=== PATIENT | male | born 1960 | race African-American/Black ===

== ENCOUNTER → 2022-01-02 09:23 | Outpatient (REF) | payer OTHER, SELFPAY ==
--- NOTE | 2022-01-02 09:27 | CA_ITS ---
Transthoracic Echocardiogram Patient (Last, First, Middle): Rai Chilel, Gender: Male Date of : 1960 Age: 61 Procedure Date: 01/02/2022 Procedure Type: Transthoracic Echocardiogram Location: OP Height: 182.88 cm Weight: 104.33 kg BSA: 2.26 m2 Heart Rate: bpm BP: 132 / 70 mmHg Western [employer] Hat Blocker: PUNEET Referring MD: Angelita [facility] Symptoms: I51.7 CARDIOMEGALY Study Quality: Good ECG Rhythm: Sinus Conclusions: - The left ventricular systolic function is normal. The visually estimated ejection fraction is between 60-65%. - LV peak global longitudinal strain -9.7% (reduced). - There is severely increased left ventricular wall thickness. - There is mild calcification of the aortic valve. Findings Left Ventricle Normal left ventricular cavity size. There is severely increased left ventricular wall thickness. The left ventricular systolic function is normal. The visually estimated ejection fraction is between 60-65%. There is no evidence of regional wall motion abnormalities. E/E prime ratio is between 8 and 15 consistent with indeterminate filling pressures. Evidence suggests grade I (mild) diastolic dysfunction. LV peak global longitudinal strain -9.7% (reduced). Right Ventricle Mildly increased right ventricular cavity size. There is normal right ventricular systolic function. Atria Both atria are normal in size. Aortic Valve There is a normal trileaflet aortic valve. There is mild calcification of the aortic valve. There is no aortic valve stenosis. There is no aortic valve regurgitation. Mitral Valve The mitral valve appears normal. There is trace mitral valve regurgitation. There is no mitral valve stenosis. Pulmonic Valve The pulmonic valve is likely normal. Tricuspid Valve Normal tricuspid valve structure. There is trace tricuspid valve regurgitation. Tricuspid regurgitation envelope is inadequate for calculation of right ventricular systolic pressure. Great Vessels The asc aorta is normal in size. Venous The inferior vena cava is normal in size and collapses greater than 50% with inspiration. Pericardium/Pleural There is no evidence of pericardial effusion. Prior Study Comparison No significant change compared to prior study dated: 04/13/2020. (GLS not previously performed). Measurements 2D Linear Measurements IVSd: 1.61 0.6-0.9/0.6-1.0 cm LVIDd: 4.40 3.9-5.3/4.2-5.9 cm LVIDd Index: 1.95 2.4-3.2/2.2-3.1 cm/m2 LVIDs: 2.39 2.0-3.6 cm LVPWd: 1.86 0.7-1.1 cm LA Diam: 4.10 2.7-3.8/3.0-4.0 cm LAIDs Index: 1.81 1.5-2.3 cm/m2 LV Mass: 418.35 67-162/88-224 g LV Mass Index: 185.11 43-95/49-115 g/m2 LVOT Diam: 2.10 3.0+(-)1.3 cm 2D Systolic Function EF 4C: 59.70 >55% Mitral Valve MV Pk E: 0.69 MV PK A: 0.47 MV Decel Time: 187.00 E/A: 1.50 E'Lateral: 5.11 E'Medial: 4.68 E/E' Med: 14.70 E/E' Lat: 13.40 PHT: 55.00 MVA PHT: 4.00 Decel Talbot: 3.67 Aortic Valve AoV Pk Silviano: 1.97 AoV Mn Silviano: 1.36 AoV VTI: 0.37 AoV Pk Grad: 16.00 Aov Mn Grad: 8.00 IRMA Cont.VTI: 2.35 LVOT LVOT Pk Silviano: 1.34 LVOT Mn Silviano: 0.91 LVOT VTI: 0.25 LVOT Pk Grad: 7.00 LVOT Mn Grad: 4.00 LVOT Diam: 2.10 LVOT Area: 3.46 Diastolic Function MV Pk E: 0.69 MV Pk A: 0.47 E/A: 1.50 E'Medial: 4.68 E/E' Med: 14.70 E' Laterial: 5.11 E/E' Lat: 13.40 Right Ventricle TAPSE (mm): 20.90 TVS' Silviano: 15.80 Tricuspid Valve RA Press: 3.00 Great Vessels Aorta Sinus of Valsalva: 3.16 2.0-3.[address] Ridge: 3.13 1.7-3.4 cm Ao Asc: 3.70 2.1-3.4 cm Pulmonary Veins Pulm Vein S/D 0.90 Pulmonary Valve PV Pk Silviano: 1.00 Peak PV Grad: 4.00 Updated in Other Vendor System with Status of Final Miguelito Barnhart MD electronically signed on 01/02/2022 5:10:19 PM with status of Final
== END ==
LOC: HO.CARD 09:23
PROVIDERS: PCP Registered Nurse; Visit Provider Registered Nurse
DX: I51.7 Cardiomegaly (principal)
CPT/HCPCS: 93306; 93356

== ENCOUNTER → 2022-01-31 10:07 | Outpatient (BNVA) | payer OTHER, SELFPAY | PROVIDERS: PCP Registered Nurse; Referring Provider Registered Nurse; Visit Provider Internal Medicine | DX: I51.7 Cardiomegaly (principal); I12.9 Hypertensive chronic kidney disease with stage 1 through stage 4 chronic kidney disease, or unspecified chronic kidney disease; N18.9 Chronic kidney disease, unspecified; R06.02 Shortness of breath; F17.210 Nicotine dependence, cigarettes, uncomplicated | CPT/HCPCS: 93005 ==

== ENCOUNTER → 2022-03-02 15:58 | Outpatient (BNVA) | payer OTHER, SELFPAY | PROVIDERS: PCP Registered Nurse; Visit Provider Urology | DX: N40.1 Benign prostatic hyperplasia with lower urinary tract symptoms (principal); N13.8 Other obstructive and reflux uropathy; R39.11 Hesitancy of micturition; R39.12 Poor urinary stream | CPT/HCPCS: 51798 ==

== ENCOUNTER 2022-04-26 11:32 | Outpatient (REF) | payer OTHER, SELFPAY | END 2022-04-26 11:33 | disposition home or self-care (01) | LOC: HO.US 11:32 | PROVIDERS: Visit Provider Urology | DX: Z13.89 Encounter for screening for other disorder (principal) ==

== ENCOUNTER 2022-05-10 15:27 | Outpatient (REF) | payer OTHER, SELFPAY ==
--- NOTE | ~2022-05-10 | US_ITS ---
EXAMINATION: US PELVIS LIMITED (BLADDER) CLINICAL INFORMATION: Poor urinary stream. COMPARISON: None TECHNIQUE: Real-time imaging of the bladder. FINDINGS: BLADDER: Well distended and normal. Bilateral ureteral jets are demonstrated. Prevoid bladder volume is 164 mL. Postvoid bladder volume is 3 mL. ADDITIONAL FINDINGS: Moderate prostatomegaly with coarse calcifications on the right posteriorly with a volume of approximately 56 cc. Color Doppler showed no abnormal vascular flow. US/US bladder IMPRESSION: 1. No significant urinary bladder abnormality. 2. Moderate prostamegaly.
== END 2022-05-10 15:28 | disposition home or self-care (01) ==
LOC: HO.US 15:27
PROVIDERS: Visit Provider Urology
DX: N40.1 Benign prostatic hyperplasia with lower urinary tract symptoms (principal); R39.11 Hesitancy of micturition; R39.12 Poor urinary stream
CPT/HCPCS: 76857

== ENCOUNTER 2024-09-25 08:41 | Outpatient (REF) | payer OTHER, SELFPAY ==
--- OUTSIDE RECORDS SUMMARY | 2024-09-25 09:02 | XMS_ITS | Encounter Summary ---
Author Organization [employer] [facility] Address [address] [place] [id number] Care Team Providers Care Sample Builder Name Role Phone Angelita Benavides Primary Care Provider [phone] Reason for Referral * Consultation (Routine) - Pending Review Specialty Diagnoses / Procedures Referred By Yennifer gaston Referred To Contact Cardiology Diagnoses Left ventricular hypertrophy Angelita Benavides FNP [address], [place] Phone: tel: fax: Referral ID Status Reason Start Date Expiration Date Visits Requested Visits Authorized [id number] Pending Review Specialty Services Required 09/24/2024 09/24/2025 1 1 * Consultation (Routine) - Pending Review Specialty Diagnoses / Procedures Referred By Yennifer gaston Referred To Contact Ophthalmology Diagnoses Hypertensive retinopathy of both eyes Angelita Benavides FNP [address], [place] Phone: tel: fax: Referral ID Status Reason Start Date Expiration Date Visits Requested Visits Authorized [id number] Pending Review Specialty Services Required 09/24/2024 09/24/2025 1 1 * Imaging (Routine) - Pending Review Specialty Diagnoses / Procedures Referred By Yennifer gaston Referred To Contact Cardiology Diagnoses Cardiomyopathy, unspecified type (CMS/HCC) Procedures Transthoracic Echo (TTE) Complete Angelita Benavides FNP [address] [place], [place] Phone: tel: fax: Referral ID Status Reason Start Date Expiration Date Visits Requested Visits Authorized [id number] Pending Review Perform Procedure 09/24/2024 09/24/2025 1 1 Reason for Visit * Reason Comments Annual Exam Encounter Details Date Type Department Care Team (Late st Contact Info) Description 09/23/2024 2:00 PM EST Office Visit [facility] [address] [place] [address] Angelita Benavides FNP [address] [place] [address] Healthcare maintenance (Primary Dx); Benign essential hypertension; Left ventricular hypertrophy; Hypertensive retinopathy of both eyes; Tobacco use disorder; Erectile dysfunction, unspecified erectile dysfunction type; Benign prostatic hyperplasia with lower urinary tract symptoms, symptom details unspecified; Encounter for immunization; Dietary counseling; Exercise counseling; Class 1 obesity due to excess calories with serious comorbidity and body mass index (BMI) of 32.0 to 32.9 in adult Social History Tobacco Use Types Packs/Day Years Used Date Smoking Tobacco: Every Day Cigarettes Smokeless Tobacco: Never Tobacco Cessation:Ready to Q uit: Not Asked; Counseling Given: Not Answered Alcohol Use Standard Drinks/Week Comments Yes 0 (1 standard drink = 0.6 oz pur e alcohol) Housing Stability Answer Date Recorded What is your housing situation today? I have cliffordzenaida zazueta 09/10/[address] you li ve. Do you have problems with any of the following? Pests such as bugs, ants, or mice 09/10/2024 Food Insecurity Answer Date Recorded Within the past 12 months, y ou worried that your food would run out before you got money to buy more: Never True 09/10/2024 Within the past 12 months,th e food you bought just didn't last and you didn't have enough money to get more: Never True Transportation Answer Date Recorded In the past 12 months, has l ack of transportation kept you from medical appts, meetings, work or from getting things needed for daily living? No 09/10/2024 Utilities Answer Date Recorded In the past 12 months, has t he electric, gas, oil or water [employer] threatened to shut off services in your home? Yes 09/10/2024 Internet Access Answer Date Recorded Internet Access Q1 Yes 09/10/2024 Internet Access Q2 Not on file 09/10/2024 Sex and Gender Information Value Date Recorded Sex Assigned at Male 06/18/2022 10:30 AM EDT Legal Sex Male 10:30 AM EDT Gender Identity Male 06/18/2022 10:30 AM EDT Sexual Orientation Straight 06/18/2022 10 :30 AM EDT documented as of this encounter Last Filed Vital Signs Vital Sign Reading Time Taken Comments Blood Pressure 164/99 09/23/2024 2:02 PM EST Pulse 87 09/23/2024 2:02 PM EST Temperature 36.4 ??C (97.6 ??F) 09/23/2024 2:02 PM ES T Respiratory Rate 20 09/23/2024 2:02 PM EST Oxygen Saturation - - Inhaled Oxygen Concentration - - Weight 109 kg (241 lb 6.4 oz) 09/23/2024 2:02 PM EST Height 182.9 cm (6') 09/23/2024 2:02 PM EST Body Mass Index 32.74 09/23/2024 2:02 PM EST documented in this encounter Progress Notes * [facility], [facility] - 09/23/2024 2:00 PM EST SUBJECTIVE: Rai Chilel is a 64 y.o. year old male with HTN, HLD, LVH (last echo 03/2020 EF 60-65%), BPH, hypertensive retinopathy who presents for routine physical exam and to reestablish care at [facility]. Acute Concerns: Erectile Dysfunction --difficulty achieving erection Interim Updates: HTN- Not taking BP meds consistently. Lost to follow up with cardiology. Pt denies CP/SOB/headache/blurred vision Saw Dr. Orellana 08/07/24 with c/o blood in stool-tx'd for constipation and referred to GI. Pt reports sx have improved Social History Social History Narrative Tobacco Use: 1/2 PPD ETOH: Daily Marijuana Use: None Other substance use: None Current living environment: Lives with daughter (special needs) Employment/education: [employer] Sexually active: yes Partners are: AFAB Patient Active Problem List Diagnosis Benign essential hypertension Benign prostatic hyperplasia Bloody urethral discharge Sprain of right ankle No past surgical history on file. No family history on file. Review of Systems Constitutional: Negative for activity change, diaphoresis, fatigue, fever and unexpected weight change. HENT: Negative. Eyes: Negative for visual disturbance. Respiratory: Negative for apnea, cough, chest tightness and shortness of breath. Cardiovascular: Negative for chest pain, palpitations and leg swelling. Gastrointestinal: Negative for abdominal pain, blood in stool and nausea. Endocrine: Negative. Genitourinary: See HPI Musculoskeletal: Negative. Skin: Negative. Allergic/Immunologic: Negative. Neurological: Negative for dizziness, syncope, light-headedness and headaches. Hematological: Negative. Psychiatric/Behavioral: Negative. OBJECTIVE: Vitals: 09/23/24 1402 BP: (!) 164/99 Pulse: 87 Resp: 20 Temp: 97.6 ??F (36.4 ??C) Physical Exam Constitutional: General: He is not in acute distress. Appearance: Normal appearance. HENT: Head: Normocephalic. Right Ear: Tympanic membrane, ear canal and external ear normal. Left Ear: Tympanic membrane, ear canal and external ear normal. Mouth/Throat: Mouth: Mucous membranes are moist. Eyes: Conjunctiva/sclera: Conjunctivae normal. Pupils: Pupils are equal, round, and reactive to light. Cardiovascular: Rate and Rhythm: Normal rate and regular rhythm. Heart sounds: Normal heart sounds. Pulmonary: Effort: Pulmonary effort is normal. Breath sounds: Normal breath sounds. Abdominal: Palpations: Abdomen is soft. Musculoskeletal: General: Normal range of motion. Skin: General: Skin is warm and dry. Neurological: General: No focal deficit present. Mental Status: He is alert and oriented to person, place, and time. Psychiatric: Mood and Affect: Mood normal. Behavior: Behavior normal. ASSESSMENT/PLAN 1. Benign essential hypertension - BP elevated in office. Pt asx. Did not take medications today. Instructed to take medications when he returns home - Chlorthalidone 25 - Lisinopril 20 - Amlodipine 5 - Start once daily monitoring - ED precautions advices - Update labs - Comprehensive Metabolic Panel; Future - Lipid Panel, Standard; Future - Hemoglobin A1c; Future - Comprehensive Metabolic Panel - Lipid Panel, Standard - Hemoglobin A1c 2. Left ventricular hypertrophy - Update echo; - referral back to cardiology - Transthoracic Echo (TTE) Complete; Future - Transthoracic Echo (TTE) Complete 3. Hypertensive retinopathy of both eyes - Referral back to [facility] to reestablish care - Referral to Ophthalmology; Future - Referral to Ophthalmology 4. Tobacco use disorder - Strongly advised tobacco cessation--pt states he will try quitting next month - nicotine (Nicoderm CQ) 14 MG/24HR patch; Place 1 patch on the skin 1 (one) time each day at the same time. Dispense: 30 patch; Refill: 3 - nicotine polacrilex (Nicorette) 4 MG gum; Chew 1 each (4 mg) if needed for smoking cessation. Dispense: 100 each; Refill: 3 5. Erectile dysfunction, unspecified erectile dysfunction type - Likely multifactorial - Trial PRN sildenafil - Initial labs - Patient previously followed by urology for BPH; consider referral back if sx worsen - sildenafil (Viagra) 50 MG tablet; Take 1 tablet (50 mg) by mouth if needed for erectile dysfunction. Dispense: 10 tablet; Refill: 0 - Testosterone, Total, males (Adult), IA; Future - PSA,Total; Future - Testosterone, Total, males (Adult), IA - PSA,Total 6. Benign prostatic hyperplasia with lower urinary tract symptoms, symptom details unspecified - Stable on flomax - Lost to follow up with [facility] urology - Will updated PSA; refer back if indicated 7. Healthcare maintenance (Primary) - Cardiopulmonary exam WNL - Encouraged regular aerobic exercise with initial goal of 30 minute walk 3x/week gradually increasing to 150 min/week of moderate intensity exercise - Encouraged balanced diet with a variety of fruits, vegetables, and lean meats. Recommended to decrease soda and sugary beverage consumption. Routine Health Maintenance Optometry: Referral placed 09/24/24 Dental: Overdue--patient to contact [facility] Adult IZ: Covid: Will defer to next visit Influenza: Accepts today Pneumococcal: Accepts today Immunization History Administered Date(s) Administered Influenza Injectable Quadrivalant Preservative Free IIV4 MDCK 07/09/2019 Influenza injectable quadrivalent IIV4 with preservative 10/21/2017 Influenza injectable quadrivalent preservative free 08/09/2016, 11/08/2021, 07/06/2022 Influenza, seasonal, injectable, preservative free 09/23/2024 Moderna Covid-19 Vaccine 12+ 11/30/2020, 12/28/2020, 11/08/2021 Pneumococcal Conjugate PCV 20 09/23/2024 RSV Bivalent 09/06/2023 Tdap 08/09/2016 Varicella 04/17/2016 Zoster, Recombinant 09/06/2023, 11/22/2023 Screenings Colorectal cancer screening: Overdue--pt referred 07/2024. Provided with contact information today and encouraged to call PSA Screening: Pending Lung CA: Accepts referral to LDLCT program. Faxed today to [facility] AAA Screening: Age 65 Mental health screening with validated assessment tool : Negative Reproductive Sexually Active: Yes Partners:AFAB Declines routine STI screening IPV screening: Pt feels safe and healthy in current relationship(s) 8. Encounter for immunization - PCV-20 VACCINE 6 wks + - FLU VACCINE TRIVALENT (Fluarix) 6 mo + Follow Up: RN BP check 2 weeks; 6 months routine Current Outpatient Medications on File Prior to Visit Medication Sig Dispense Refill amLODIPine (Norvasc) 5 MG tablet TAKE 1 TABLET BY MOUTH EVERY DAY IN THE MORNING 30 tablet 5 atorvastatin (Lipitor) 80 MG tablet TAKE 1 TABLET BY MOUTH EVERY DAY AT BEDTIME 30 tablet 5 cetirizine (ZyrTEC) 10 MG tablet Take 1 tablet (10 mg) by mouth Once per day. 30 tablet 3 chlorthalidone (Hygroton) 25 MG tablet TAKE 1 TABLET BY MOUTH EVERY DAY 30 tablet 5 docusate sodium (Colace) 100 MG capsule Take 1 capsule (100 mg) by mouth 2 times daily. 180 capsule3 escitalopram (Lexapro) 5 MG tablet TAKE 1 TABLET BY MOUTH EVERY DAY 30 tablet 5 fluticasone (Flonase) 50 MCG/ACT nasal spray Administer 2 sprays into each nostril Once per day. Shake gently. Before first use, prime pump. After use, clean tip and replace cap. 16 g 3 gabapentin (Neurontin) 100 MG capsule TAKE 2 CAPSULES BY MOUTH EVERY DAY IN THE EVENING BEFORE BEDTIME FOR RESTLESS LEGS 60 capsule 5 lisinopril 20 MG tablet TAKE 1 TABLET BY MOUTH EVERY DAY 30 tablet 5 pantoprazole (ProtoNix) 20 MG EC tablet TAKE 2 TABLETS BY MOUTH EVERY DAY 60 tablet 5 polycarbophil (Fibercon) 625 MG tablet Take 1 tablet (625 mg) by mouth 2 times daily. 180 tablet 3 polyethylene glycol, PEG, 3350 (MiraLax) 17 GM/SCOOP powder Take 17 g by mouth if needed each day (constipation). 527 g 1 tamsulosin (Flomax) 0.4 MG 24 hr capsule TAKE 1 CAPSULE BY MOUTH EVERY DAY 30 MINUTES AFTER THE same MEAL 30 capsule 5 No current facility-administered medications on file prior to visit. documented in this encounter Plan of Treatment Scheduled Orders Name Type Priority Associated Diagnoses Orde r Schedule Testosterone, Total, males (Adult), IA Lab Routine Erectile dysfunction, unspecified erectile dysfunction type Expected: 09/24/2024, Expires: 09/24/2025 PSA,Total Lab Routine Erectile dysfunction, unspecified erectile dysfunction type Expected: 09/24/2024, Expires: 09/24/2025 Comprehensive Metabolic Panel Lab Routine Benign essential hypertension Expected: 09/24/2024 (Approximate), Expires: 09/24/2025 Lipid Panel, Standard Lab Routine Benign essential hypertension Expected: 09/24/2024 (Approximate), Expires: 09/24/2025 Hemoglobin A1c Lab Routine Benign essential hypertension Expected: 09/24/2024 (Approximate), Expires: 09/24/2025 Transthoracic Echo (TTE) Complete Echocardiography Routine Left ventricular hypertrophy Expected: 09/24/2024 (Approximate), Expires: 09/24/2026 Scheduled Referrals Name Type Priority Associated Diagnoses Order Schedule Referral to Ophthalmology Outpatient Referral Routine Hypertensive retinopathy of both eyes Expected: 09/24/2024 (Approximate), Expires: 09/24/2025 Referral to Cardiology Outpatient Referral Routine Left ventricular hypertrophy Expected: 09/24/2024 (Approximate), Expires: 09/24/2025 documented as of this encounter Visit Diagnoses Diagnosis Healthcare maintenance- Primary Benign essential hypertension Essential hypertension, benign Left ventricular hypertrophy Cardiomegaly Hypertensive retinopathy of both eyes Hypertensive retinopathy Tobacco use disorder Erectile dysfunction, unspecified erectile dysfunction type Benign prostatic hyperplasia with lower urinary tract symptoms, symptom details unspecified Encounter for immunization Dietary counseling Dietary surveillance and counseling Exercise counseling Class 1 obesity due to excess calories with serious comorbidity and body mass index (BMI) of 32.0 to 32.9 in adult documented in this encounter Care Teams Sample Builder Relationship Specialty Start Date End Date Angelita Benavides FNP [address] [place] [id number] PCP - General Family Medicine 05/16/21 documented as of this encounter
--- OUTSIDE RECORDS SUMMARY | 2024-09-25 09:02 | XMS_ITS | Encounter Summary ---
Author Organization [email or web address] Address [address] [place] [address] Care Team Providers Care Expense Analyst Name Role Phone Angelita Benavides [facility] Primary Care Provider [phone] Encounter Details Date Type Department Care Team (Latest Contact Info) Description 09/23/2024 Travel Social History Tobacco Use Types Packs/Day Years Used Date Smoking Tobacco: Every Day Cigarettes Smokeless Tobacco: Never Alcohol Use Standard Drinks/Week Comments Yes 0 (1 standard drink = 0.6 oz pur e alcohol) Housing Stability Answer Date Recorded What is your housing situation today? I have clifford zazueta 09/10/[address] you [...] t he electric, gas, oil or water company threatened to shut off services in your [...] AM EDT documented as of this encounter Plan of Treatment Not on file documented as of this encounter Visit Diagnoses Not on filedocumented in this encounter Care Teams Expense Analyst Relationship Specialty Start Date End Date Angelita Benavides FNP [address] [place] [id number] PCP - General Family Medicine 05/16/21 documented as of this encounter
--- OUTSIDE RECORDS SUMMARY | 2024-09-25 09:02 | XMS_ITS | Clinical Summary ---
Author Organization [employer] Address [address] [place] [address] 7 [place] [address] Care Team Providers Care Stud Sheep Farmer Name Role Phone Angelita Benavides [facility] Primary Care Provider [phone] Allergies Active Allergy Reactions Criticality Noted Date Comments Penicillins 06/08/2016 Other Reaction(s): Unknown Medications escitalopram (Lexapro) 5 MG tablet TAKE 1 TABLET BY MOUTH EVERY DAY 30 tablet 5 4 Active atorvastatin (Lipitor) 80 MG tabletIndications: Mixed hyperlipidemia TAKE 1 TABLET BY MOUTH EVERY DAY AT BEDTIME 30 tablet 5 4 Active amLODIPine (Norvasc) 5 MG tabletIndications: Benign essential hypertension TAKE 1 TABLET BY MOUTH EVERY DAY IN THE MORNING 30 tablet 5 4 Active chlorthalidone (Hygroton) 25 MG tabletIndications: Essential hypertension TAKE 1 TABLET BY MOUTH EVERY DAY 30 tablet 5 4 Active lisinopril 20 MG tabletIndications: Essential hypertension TAKE 1 TABLET BY MOUTH EVERY DAY 30 tablet 5 4 Active pantoprazole (ProtoNix) 20 MG EC tablet TAKE 2 TABLETS BY MOUTH EVERY DAY 60 tablet 5 4 Active tamsulosin (Flomax) 0.4 MG 24 hr capsuleIndications :Unspecified symptoms and signs involving the genitourinary system TAKE 1 CAPSULE BY MOUTH EVERY DAY 30 MINUTES AFTER THE same MEAL 30 capsule 5 4 Active gabapentin (Neurontin) 100 MG capsule TAKE 2 CAPSULES BY MOUTH EVERY DAY IN THE EVENING BEFORE BEDTIME FOR RESTLESS LEGS 60 capsule 5 4 Active docusate sodium (Colace) 100 MG capsule Take 1 capsule (100 mg) by mouth 2 times daily. 180 capsule 3 4 025 Active polycarbophil (Fibercon) 625 MG tablet Take 1 tablet (625 mg) by mouth 2 times daily. 180 tablet 3 4 025 Active polyethylene glycol, PEG, 3350 (MiraLax) 17 GM/SCOOP powder Take 17 g by mouth if needed each day (constipation) . 527 g 1 4 025 Active fluticasone (Flonase) 50 MCG/ACT nasal spray Administer 2 sprays into each nostril Once per day. Shake gently. Before first use, prime pump. After use, clean tip and replace cap. 16 g 3 4 025 Active cetirizine (ZyrTEC) 10 MG tabletIndications: Seasonal allergies Take 1 tablet (10 mg) by mouth Once per day. 30 tablet 3 4 Active nicotine (Nicoderm CQ) 14 MG/24HR patchIndications:T obacco use disorder Place 1 patch on the skin 1 (one) time each day at the same time. 30 patch 3 5 025 Active nicotine polacrilex (Nicorette) 4 MG gumIndications:Tob acco use disorder Chew 1 each (4 mg) if needed for smoking cessation. 100 each 3 5 025 Active sildenafil (Viagra) 50 MG tabletIndications: Erectile dysfunction, unspecified erectile dysfunction type Take 1 tablet (50 mg) by mouth if needed for erectile dysfunction. 10 tablet 5 026 Active Active Problems Problem Noted Date Diagnosed Date Left ventricular hypertrophy 09/24/2024 Hypertensive retinopathy of both eyes 09/24/2024 Tobacco use disorder 09/24/2024 Erectile dysfunction 09/24/2024 Sprain of right ankle 03/31/2024 Assessment & Plan (03/31/2024 6:32 PM EDT): Advised re elevation of right leg for at least 15 min 3-4x/d, restrictions for work d/w patient. Advised to put ice compresses to affected area 2x-3x per day Take tylenol prn pain Refer to PT Order Xray to ro other lesions Immobilization with right ankle AFO brace done today, patient can loose it up to sleep and take it off for max 4h/d for the next 2 weeks. FU with PCP in 6-8w Bloody urethral discharge 11/05/2022 Assessment & Plan (11/05/2022 2:47 PM EDT): RO STI, urine sent for GC/Chlam. Most likely BPH, patient will call to schedule fu appt. Benign prostatic hyperplasia 11/09/2021 Benign essential hypertension 06/08/2016 Assessment & Plan (11/05/2022 2:45 PM EDT): Uncontrolled, non complaint with meds. Counseled to take all BP meds in the am. Do not hold meds If ocassionally drinking ETOH, avoid ETOH use. Continue lisinopril 20mg, fu BP w RN in 1w Encounters Date Type Department Care Team Description 09/25/2024 Travel 09/23/2024 2:00 PM EST Office Visit [address] [address] [facility] Healthcare maintenance (Primary Dx); Benign essential hypertension; Left ventricular hypertrophy; Hypertensive retinopathy of both eyes; Tobacco use disorder; Erectile dysfunction, unspecified erectile dysfunction type; Benign prostatic hyperplasia with lower urinary tract symptoms, symptom details unspecified; Encounter for immunization; Dietary counseling; Exercise counseling; Class 1 obesity due to excess calories with serious comorbidity and body mass index (BMI) of 32.0 to 32.9 in adult 09/23/2024 Travel 09/10/2024 Patient Outreach [address] [address] [facility] Care Coordination (CHW outreach SDOH pest control - referral completed ) 09/10/2024 Patient Outreach [address] [address] [facility] Pre-visit Planning (SDOH screening negative and tobacco screening negative) 08/07/2024 10:30 AM EST Office Visit [address] [address] Sindhu Orellana, PND (post-nasal drip) (Primary Dx); Rectal bleeding; Other constipation; Seasonal allergies 08/07/2024 Travel 08/06/2024 Telephone [facility] [address] [place] [address] [facility] Nurse Triage 07/22/2024 Refill [facility] [address] [place] [address] [facility] Unspecified symptoms and signs involving the genitourinary system; Seasonal allergies 06/27/2024 Refill [facility] [address] [place] [address] [facility] Mixed hyperlipidemia; Benign essential hypertension; Essential hypertension from Last 3 Months Immunizations Name Administration Dates Next Due Influenza Injectable Quadriv alant Preservative Free IIV4 MDCK 07/09/2019 Influenza injectable quadriv alent IIV4 with preservative 10/21/2017 Influenza injectable quadriv alent preservative free 07/06/2022,11/08/2021,08/09/2016 Influenza, seasonal, injecta ble, preservative free 09/23/2024 Pneumococcal Conjugate PCV 20 09/23/2024 RSV Bivalent 09/06/2023 Tdap 08/09/2016 Varicella 04/17/2016 Zoster, Recombinant 11/22/2023,09/06/2023 Social History Tobacco Use Types Packs/Day Years [...] Orientation Straight 06/18/2022 10 :30 AM EDT Last Filed Vital Signs Vital Sign Reading Time Taken Comments Blood Pressure 164/99 09/23/2024 2:02 PM EST Pulse 87 09/23/2024 2:02 PM EST Temperature 36.4 ??C (97.6 ??F) 09/23/2024 2:02 PM ES T Respiratory Rate 20 09/23/2024 2:02 PM EST Oxygen Saturation 98% 03/31/2024 5:39 PM EDT Inhaled Oxygen Concentration - - Weight 109 kg (241 lb 6.4 oz) 09/23/2024 2:02 PM EST Height 182.9 cm (6') 09/23/2024 2:02 PM EST Body Mass Index 32.74 09/23/2024 2:02 PM EST Plan of Treatment Health Maintenance Due Date Last Done Comments CT Colonography 1960 Colonoscopy 1960 Colorectal Cancer Screening 1960 Depression Screening 1960 FIT DNA/Cologuard 1960 FIT 1960 FOBT 1960 HIV Screening 1960 Sigmoidoscopy 1960 Alcohol/Substance Use Screening 1972 COVID-19 Vaccine ( season) 2024 11/08/2021, 12/28/2020, 11/30/2020 SDOH Screening 09/10/2025 09/10/2024 Tobacco Screening 09/24/2025 09/24/2024 DTaP/Tdap/Td Vaccines (2 - Td or Tdap) 08/09/2026 08/09/2016 Lipid Panel 10/24/2026 10/24/2021, 05/25/2020 Hepatitis C Screening Completed 05/25/2020 RSV Patients and Patients Aged 60 years or older Completed 09/06/2023 Zoster Vaccines Completed 11/22/2023, 09/06/2023 Influenza Vaccine Completed 09/23/2024, , 11/08/2021, Additional history exists Pneumococcal Vaccine: 50+ Years Completed 09/23/2024 HIB Vaccines Aged Out No longer eligi ble based on patient's age to complete this topic HPV Vaccines Aged Out No longer eligi ble based on patient's age to complete this topic Hepatitis A Vaccines Aged Out No long er eligible based on patient's age to complete this topic Hepatitis B Vaccines Aged Out No long er eligible based on patient's age to complete this topic IPV Vaccines Aged Out No longer eligi ble based on patient's age to complete this topic Meningococcal Vaccine Aged Out No meghan leonardo eligible based on patient's age to complete this topic RSV under 20 months Aged Out No longe r eligible based on patient's age to complete this topic Rotavirus Vaccines Aged Out No longer eligible based on patient's age to complete this topic Procedures Procedure Name Priority Date/Time Associated Diagnosis Comments LIPID PANEL, STANDARD Routine 10/24/2021 10:25 AM EST [facility] HISTORICAL HEPATITIS C AB W/REFL TO HCV RNA, QN, PCR Routine 05/25/2020 11:14 AM EDT from Last 3 Months or Most Recently Relevant to Health Maintenance Results * (ABNORMAL) LIPID PANEL, STANDARD (10/24/2021 10:25 AM EST) Chol/HDLC Ratio 3.3 <5.0 (calc) [facility] Cholesterol, Total 189 <200 mg/dL [facility] HDL Cholesterol 58 > OR = 40 mg/dL [facility] LDL Cholesterol 111(H) mg/dL (calc) [facility] Comment: Reference range: <100 ?? Desirable range <100 mg/dL for primary prevention; ?? <70 mg/dL for patients with CHD or diabetic patients ?? with > or = 2 CHD risk factors. ?? LDL-C is now calculated using the Price-Jennings ?? calculation, which is a validated novel method providing ?? better accuracy than the Friedewald equation in the ?? estimation of LDL-C. ?? Price SS et al. MILA. 2013;310(19): 8777-8206 ?? (http://MyNewPlace/faq/ZAF264) Non-HDL Cholesterol 131(H) <130 mg/dL (calc) [facility] Comment: For patients with diabetes plus 1 major ASCVD risk ?? factor, treating to a non-HDL-C goal of <100 mg/dL ?? (LDL-C of <70 mg/dL) is considered a therapeutic ?? option. Triglycerides 98 <150 mg/dL [facility] 10/24/2021 10:2 5 AM EST [facility] LAB BLOOD ORDERABLES Final Re sult [facility] [address] * HEPATITIS C AB W/REFL TO HCV RNA, QN, PCR (05/25/2020 11:14 AM EDT) HEPATITIS C ANTIBODY NON-REACT DINO NON-REACT DINO [facility] INDEX 0.03 <1.00 [facility] Comment: ?? HCV antibody was non-reactive. There is no laboratory ?? evidence of HCV infection. ?? In most cases, no further action is required. However, if recent HCV exposure is suspected, a test for HCV RNA (test code 19281) is suggested. ?? For additional information please refer to http://POI.Maven/faq/YPK07r6 (This link is being provided for informational/ educational purposes only.) ?? HEPATITIS C ANTIBODY NON-REACT DINO NON-REACT DINO [facility] INDEX 0.03 <1.00 [facility] Comment: ?? HCV antibody was non-reactive. There is no laboratory ?? evidence of HCV infection. ?? In most cases, no further action is required. However, if recent HCV exposure is suspected, a test for HCV RNA (test code 85453) is suggested. ?? For additional information please refer to http://POI.Maven/faq/ANL74c4 (This link is being provided for informational/ educational purposes only.) ?? HEPATITIS C ANTIBODY NON-REACT DINO NON-REACT DINO [facility] INDEX 0.03 <1.00 [facility] Comment: ?? HCV antibody was non-reactive. There is no laboratory ?? evidence of HCV infection. ?? In most cases, no further action is required. However, if recent HCV exposure is suspected, a test for HCV RNA (test code 33697) is suggested. ?? For additional information please refer to http://Watchup/faq/FZT29t8 (This link is being provided for informational/ educational purposes only.) ?? HEPATITIS C ANTIBODY NON-REACT DINO NON-REACT DINO [facility] INDEX 0.03 <1.00 [facility] Comment: ?? HCV antibody was non-reactive. There is no laboratory ?? evidence of HCV infection. ?? In most cases, no further action is required. However, if recent HCV exposure is suspected, a test for HCV RNA (test code 50327) is suggested. ?? For additional information please refer to http://Watchup/faq/IUT61j5 (This link is being provided for informational/ educational purposes only.) ?? 05/25/2020 11:1 4 AM EDT us Historical Provider HISTORICAL/NON ORDERABLE LABS Final Result [facility] [address] from Last 3 Months or Most Recently Relevant to Health Maintenance Insurance [facility] Care Teams Stud Sheep Farmer Relationship Specialty Start Date End Date ByronAngelita britt FNP [address] [place] [id number] PCP - General Family Medicine 05/16/21
--- OUTSIDE RECORDS SUMMARY | 2024-09-25 09:02 | XMS_ITS | Encounter Summary ---
Author Organization [employer] Address [address] [place] [address] 7t [place] [address] Care Team Providers Care Cisco Unified Communications Engineer Name Role Phone Makayla Angelita QUALITY CONTROL TESTER Primary Care Provider [phone] Encounter Details Date Type Department Care Team ([facility] st Contact Info) Description 06/24/2023 Orders Only [facility] CHC MED & PEDS [address] [place] [address] Archana Mercado LPN Social History Tobacco Use Types Packs/Day Years Used Date Smoking Tobacco: Never Assessed Sex and Gender Information Value Date Recorded Sex Assigned at Male 06/18/2022 10:30 AM EDT Legal Sex Male 10:30 AM EDT Gender Identity Male 06/18/2022 10:30 AM EDT Sexual Orientation Straight 06/18/2022 10 :30 AM EDT documented as of this encounter Plan of Treatment Not on file documented as of this encounter Visit Diagnoses Not on filedocumented in this encounter Care Teams Cisco Unified Communications Engineer Relationship Specialty Start Date End Date Angelita Benavides FNP [address] [place] [id number] PCP - General Family Medicine 05/16/21 documented as of this encounter
--- OUTSIDE RECORDS SUMMARY | 2024-09-25 09:02 | XMS_ITS | Encounter Summary ---
Author Organization [employer] Address [address] [place] [address] 7 [place] [address] Care Team Providers Care Geochemical Manager Name Role Phone Makayla [facility] Primary Care Provider [phone] Reason for Visit * Reason Comments Care Coordination CHW outreach [facility]NC pe st control - referral completed Encounter Details Date Type Department Care Team (Latest Contact Info) Description 09/10/2024 Patient Outreach [facility] [address] [place] [address] [facility] [address] [place] [address] Care Coordination (CHW outreach SDOH pest control - referral completed ) Social History Tobacco Use Types Packs/Day Years [...] AM EDT documented as of this encounter Progress Notes * Jamal Cunningham - 09/10/2024 1:18 PM EST CHW Jamal Cunningham, placed outbound call to patient for assistance with SDOH as a referral was received by the provider. Patient's name and were confirmed. Patient screened positive for the following SDOH pet's control & food insecurities. CHW referral patient to the local list of pantriesin the area for help and advice family to connect with [employer] and [facility] for more resources. Patient verbalizes understanding, and able to agree with plan to follow up. Patient educated on extended clinic hours on Mondays through Wednesdays, and Walk-In Urgent Care Located in [facility]. Patient provided with after-hours line for [facility], , which offer night time triage service and option to transfer to electronics system mechanic provider if needed. documented in this encounter Plan of Treatment Not on file documented as of this encounter Visit Diagnoses Not on filedocumented in this encounter Care Teams Geochemical Manager Relationship Specialty Start Date End Date Angelita Benavides FNP [address] [place] [address] PCP - General Family Medicine 05/16/21 documented as of this encounter
--- OUTSIDE RECORDS SUMMARY | 2024-09-25 09:02 | XMS_ITS | Encounter Summary ---
Author Organization [employer] Address [address] [place] [address] 7 [place] [address] Care Team Providers Care Non Destructive Testing Technician Name Role Phone Makayla Angelita TRACK PRODUCTION ENGINEER Primary Care Provider [phone] Encounter Details Date Type Department Care Team (Late st Contact Info) Description 10/17/[address] [facility] CHC MED & PEDS [address] [place] [address] Sindhu Abel LPN Social History Tobacco Use Types Packs/Day [...] on filedocumented in this encounter Care Teams Non Destructive Testing Technician Relationship Specialty Start Date End Date Angelita Benavides FNP [address] [place] [phone] PCP - General Family Medicine 05/16/21 documented as of this encounter
--- OUTSIDE RECORDS SUMMARY | 2024-09-25 09:02 | XMS_ITS | Encounter Summary ---
Author Organization [employer] Address [address] [facility] 7 [place] [address] Care Team Providers Care Nutrition Aide Name Role Phone Makayla, [facility] Primary Care Provider [phone] Reason for Visit * Reason Comments Pre-visit Planning SDOH screening negat wendy and tobacco screening negative Encounter Details Date Type Department Care Team ([facility] st Contact Info) Description 09/10/2024 Patient Outreach [facility] [address] [place], [place] [id number] [facility] [address] [place] [address] Pre-visit Planning (SDOH screening negative and tobacco screening negative) Social History Tobacco Use Types Packs/Day Years [...] as of this encounter Progress Notes * Shari Kolb - 09/10/2024 9:50 AM EST CC Shari placed successful outbound call to patient for pre-visit planning. Patient name and confirmed. Patient confirms appt date and time, and has transportation arrangements. Biggest concern for appointment at this time is none Appropriate screening completed in anticipation of appointment.Patient advised to bring to appointment a photo id and insurance card, SDOH positive. Patient looking for assistance with utility shut off notice for gas services and roaches Referral will be placed. documented in this encounter Plan of Treatment Not on file documented as of this encounter Visit Diagnoses Not on filedocumented in this encounter Care Teams Nutrition Aide Relationship Specialty Start Date End Date Angelita Benavides FNP [address] [place] [id number] PCP - General Family Medicine 05/16/21 documented as of this encounter
--- OUTSIDE RECORDS SUMMARY | 2024-09-25 09:02 | XMS_ITS | Encounter Summary ---
Author Organization [employer] Address [address] [place] [address] 7t [place] [address] Care Team Providers Care Second Floor Operator Name Role Phone Makayla Angelita COKE DRAWER HAND Primary Care Provider [phone] Encounter Details Date Type Department Care Team ([facility] st Contact Info) Description 05/09/2023 Orders Only [facility] CHC MED & PEDS [address] [place] [address] Archana Mercado LPN Social History Tobacco Use [...] on filedocumented in this encounter Care Teams Second Floor Operator Relationship Specialty Start Date End Date Angelita Benavides FNP [address] [place] [phone] PCP - General Family Medicine 05/16/21 documented as of this encounter
--- OUTSIDE RECORDS SUMMARY | 2024-09-25 09:02 | XMS_ITS | Encounter Summary ---
Author Organization [employer] Address [address] [place] [address] 7t [place] [address] Care Team Providers Care Pitting Machine Operator Name Role Phone Angelita Benavides [facility] Primary Care Provider [phone] Encounter Details Date Type Department Care Team (Late st Contact Info) Description 11/28/2022 Orders Only [facility] CHC MED & PEDS [address] [place] [address] Sindhu Abel LPN Social History Tobacco Use Types Packs/Day Years Used Date Smoking Tobacco: Never Assessed Sex and Gender Information Value Date Recorded Sex Assigned at Male 06/18/2022 10:30 AM EDT Legal Sex Male 10:30 AM EDT Gender Identity Male 06/18/2022 10:30 AM EDT Sexual Orientation Straight 06/18/2022 10 :30 AM EDT COVID-19 Exposure Response Date Recorded In the last 10 days, have yo u been in contact with someone who was confirmed or suspected to have Coronavirus/COVID-19? No / Unsure 11/12/2022 2:59 PM EDT documented as of this encounter Plan of Treatment Not on file documented as of this encounter Visit Diagnoses Not on filedocumented in this encounter Care Teams Pitting Machine Operator Relationship Specialty Start Date End Date Angelita Benavides FNP [address] [place] [id number] PCP - General Family Medicine 05/16/21 documented as of this encounter
[2024-09-25 12:06] LABS: Estimated Average Glucose 114 mg/dL; Hemoglobin A1C 144.6334 umol/L; Hemoglobin A1c % 5.6 % (<6.0); Total Hemoglobin (HGBA1C) 3850.6499 umol/L
[2024-09-25 12:23] LABS: Alanine Aminotransferase 33 U/L (0-40); Albumin Level 4.1 g/dL (3.5-5.0); Alkaline Phosphatase 109 U/L (39-117); Anion Gap 7 (12-20); Aspartate Amino Transferase 35 U/L (5-37); Bilirubin Total 0.4 mg/dL (0.0-1.0); Blood Urea Nitrogen 19 mg/dL (9-16); Calcium 9.7 mg/dL (8.4-10.2); Carbon Dioxide 32 mmol/L (22-29); Chloride 105 mmol/L (96-108); Cholesterol 205 mg/dL (<200); Estimated Glomerular Filt Rate > 60; Glucose Random 89 mg/dL (60-115); HDL Cholesterol 58 mg/dL (>40); LDL Cholesterol Calculated 125 mg/dL (<100); Potassium 3.3 mmol/L (3.3-5.1); Sodium 141 mmol/L (135-145); Total Protein 7.7 g/dL (6.5-8.0); Triglycerides 111 mg/dL (<150)
[2024-10-01 16:38] LABS: Testosterone, Total 482 ng/dL (250-1100)
== END 2024-09-25 08:42 | disposition home or self-care (01) ==
LOC: HO.HHCL 08:41
PROVIDERS: Visit Provider Registered Nurse
DX: Z12.5 Encounter for screening for malignant neoplasm of prostate (principal); Z13.1 Encounter for screening for diabetes mellitus; I10 Essential (primary) hypertension; N52.9 Male erectile dysfunction, unspecified
CPT/HCPCS: 36415; 80053; 80061; 83036; 84153; 84403

== ENCOUNTER → 2024-10-15 09:09 | Outpatient (REF) | payer OTHER, SELFPAY ==
--- NOTE | 2024-10-15 09:12 | CA_ITS ---
Transthoracic Echocardiogram Patient (Last, First, Middle): Rai Chilel, Gender: Male Date of : 1960 Age: 64 Procedure Date: 10/15/2024 Procedure Type: Transthoracic Echocardiogram Location: OP Height: 182.88 cm Weight: 110.68 kg BSA: 2.32 m2 Heart Rate: bpm BP: 140 / 88 mmHg Mason Helper: TO Referring MD: Angelita Cambridge [employer] Symptoms: L VENTRICULAR HYPERTROPHY I51.7 Study Quality: Fair/Contrast Conclusions: - The left ventricular systolic function is normal. The calculated ejection fraction is 56% by biplane method. - There is severely increased left ventricular wall thickness. - No obvious valvular pathology seen on this study. Findings Procedure Information Contrast agent, definity, is being given per protocol without apparent complications. Left Ventricle Normal left ventricular cavity size. There is severely increased left ventricular wall thickness. The left ventricular systolic function is normal. The calculated ejection fraction is 56% by biplane method. There is no evidence of regional wall motion abnormalities. Evidence suggests grade I (mild) diastolic dysfunction. Right Ventricle Normal right ventricular cavity size and systolic function. Atria The left atrium is mildly dilated. The right atrium is normal in size. Aortic Valve There is a normal trileaflet aortic valve. There is mild calcification of the aortic valve. There is no aortic valve stenosis. There is no aortic valve regurgitation. Mitral Valve The mitral valve appears normal. There is trace mitral valve regurgitation. There is no mitral valve stenosis. Pulmonic Valve The pulmonic valve is likely normal. Tricuspid Valve There is trace tricuspid valve regurgitation. There is no evidence of pulmonary hypertension. Great Vessels The asc aorta is normal in size. Venous The inferior vena cava is normal in size and collapses greater than 50% with inspiration. Pericardium/Pleural There is a trivial pericardial effusion. Prior Study Comparison No significant change compared to prior study dated: 01/02/2022. Recommendations, Care & Conclusions No obvious valvular pathology seen on this study. Measurements 2D Linear Measurements IVSd: 1.53 0.6-0.9/0.6-1.0 cm LVIDd: 4.85 3.9-5.3/4.2-5.9 cm LVIDd Index: 2.09 2.4-3.2/2.2-3.1 cm/m2 LVIDs: 3.06 2.0-3.6 cm LVPWd: 1.41 0.7-1.1 cm LA Diam: 4.10 2.7-3.8/3.0-4.0 cm LAIDs Index: 1.77 1.5-2.3 cm/m2 LV Mass: 372.99 67-162/88-224 g LV Mass Index: 160.77 43-95/49-115 g/m2 LVOT Diam: 2.20 3.0+(-)1.3 cm 2D Systolic Function EF 4C: 59.50 >55% EF 2C: 51.10 >55% EF BiP: 55.60 >55% Mitral Valve MV Pk E: 0.64 MV PK A: 0.72 MV Decel Time: 200.00 E/A: 0.90 E'Lateral: 3.59 E'Medial: 2.94 E/E' Med: 21.60 E/E' Lat: 17.70 PHT: 59.00 MVA PHT: 3.73 Decel Chippewa: 3.17 Aortic Valve AoV Pk Silviano: 1.75 AoV Mn Silviano: 1.36 AoV VTI: 0.40 AoV Pk Grad: 12.00 Aov Mn Grad: 8.00 IRMA Cont.VTI: 2.30 LVOT LVOT Pk Silviano: 1.09 LVOT Mn Silviano: 0.78 LVOT VTI: 0.24 LVOT Pk Grad: 5.00 LVOT Mn Grad: 3.00 LVOT Diam: 2.20 LVOT Area: 3.80 Diastolic Function MV Pk E: 0.64 MV Pk A: 0.72 E/A: 0.90 E'Medial: 2.94 E/E' Med: 21.60 E' Laterial: 3.59 E/E' Lat: 17.70 Right Ventricle TAPSE (mm): 23.40 TVS' Silviano: 10.00 Tricuspid Valve RA Press: 3.00 Great Vessels Aorta Sinus of Valsalva: 3.44 2.0-3.5 cm Ao Asc: 3.90 2.1-3.4 cm Updated in Other Vendor System with Status of Final Miguelito Barnhart MD electronically signed on 10/15/2024 2:30:00 PM with status of Final
--- OUTSIDE RECORDS SUMMARY | 2024-10-15 09:59 | XMS_ITS | Encounter Summary ---
Author Organization [employer] Address [address] [facility] 7t [place] [address] Care Team Providers Care Under Presser Name Role Phone [facility] Primary Care Provider [phone] Reason for Visit * Reason Onset Date Comments Med Refill 10/08/2024 Encounter Details Date Type Department Care Team (Late st Contact Info) Description 10/08/2024 Refill [facility] [address] [place], [place] [phone] [facility] [address] [place] [address] Erectile dysfunction, unspecified erectile dysfunction type Social History Tobacco Use Types Packs/Day Years Used Date Smoking Tobacco: Every Day Cigarettes Smokeless Tobacco: Never Alcohol Use Standard Drinks/Week Comments Yes 0 (1 standard drink = 0.6 oz pur e alcohol) Housing Stability Answer Date Recorded What is your housing situation today? I have clifford marbin 09/10/[address] you li [...] as of this encounter Plan of Treatment Upcoming Encounters Date Type Department Care Team (Late st Contact Info) Description 10/22/2024 2:00 PM EST Clinical Support [facility] [address] [place] [id number] documented as of this encounter Visit Diagnoses Diagnosis Erectile dysfunction, unspecified erectile dysfunction type documented in this encounter Care Teams Under Presser Relationship Specialty Start Date End Date Angelita Benavides FNP [address] [place] [address] PCP - General Family Medicine 05/16/21 documented as of this encounter
--- OUTSIDE RECORDS SUMMARY | 2024-10-15 09:59 | XMS_ITS | Encounter Summary ---
Author Organization [employer] Address [address] [place] [address] 7 [place] [address] Care Team Providers Care Desolderer Name Role Phone Angelita Benavides [facility] Primary Care Provider Encounter Details Date Type Department Care Team (Late st Contact Info) Description 06/24/2023 Orders Only [facility]EDS [address] [place] [address] Archana Mercado LPN Social History Tobacco Use [...] Description 10/22/2024 2:00 PM EST Clinical Support [facility] [address] [place] [address] documented as of this encounter Visit Diagnoses Not on filedocumented in this encounter Care Teams Desolderer Relationship Specialty Start Date End Date SyracuseAngelita FNP [address] [place] [address] PCP - General Family Medicine 05/16/21 documented as of this encounter
--- OUTSIDE RECORDS SUMMARY | 2024-10-15 09:59 | XMS_ITS | Encounter Summary ---
Author Organization [employer] Address [address] [facility] 7t [place] [address] Care Team Providers Care Hydraulic Plumber Helper Name Role Phone Angelita [facility]avides [facility] Primary Care Provider [phone] Reason for Visit * Reason Comments Blood Pressure Check Encounter Details Date Type Department Care Team (Latest Contact Info) Description 10/08/2024 1:30 PM EST Clinical Support [facility] [address] [place] [address] Maricruz Grimaldo, RN [address] [place] [address] Benign essential hypertension [I10] Social History Tobacco Use Types Packs/Day Years [...] Sign Reading Time Taken Comments Blood Pressure 158/94 10/08/2024 3:29 PM EST Pulse 95 10/08/2024 3:29 PM EST Temperature - - Respiratory Rate 20 10/08/2024 3:28 PM EST Oxygen Saturation 98% 10/08/2024 3:28 PM EST Inhaled Oxygen Concentration - - Weight - - Height - - Body Mass Index - - documented in this encounter Progress Notes * Maricruz Grimaldo, RN - 10/08/2024 1:30 PM EST S: Pt here for BP check nurse visit. At last appointment 09/23/24, pt's BP noted to be 164/99. Recommendations made on that day were to take BP medication when arriving home (he did not take BP medications on day of appointment) and to return for RN BP check on 09/23/24. Pt is currently taking amlodipine 5mg, chlorthalidone 25mg and lisinopril 20mg daily. Today, pt denies any blurred vision, shortness of breath, chest pain, dizziness, or headaches. Pt reports noncompliance (skips medications abouttwice a week ) with BP medication regimen, confirms that BP medications were taken today around 8am. Patient smokes 1/2 pack of cigarettes per day. O: Left Arm BP 179/104 P95, Right Arm BP 155/94 P95, RR 20/min and Sp02 98%. Heart tones regular, lungs clear bilaterally, no edema noted, skin warm pink and dry. Patient does NOT check BP at home. A: Noncompliance with BP medication regimen BP not at goal of <140/90 Reinforcement of Lifestyle modification including low sodium diet and exercise. P: Consulted with provider VIKKI Benavides regarding BP findings. Orders at this time are to INCREASE lisinopril to 40mg daily, continue amlodipine 5mg and chlorthalidone 25mg and return for RN BP recheck in 2 weeks. Pt advised to continue taking meds as directed EVERYDAY and follow a low fat/sodium diet and exercise as tolerated. Pt to f/u with PCP as needed. Pt agrees with plan and verbalized understanding. Maricruz Grimaldo RN documented in this encounter Plan of Treatment Upcoming Encounters Date Type Department Care Team (Late st Contact Info) Description 10/22/2024 2:00 PM EST Clinical Support [facility] [address] [place] [address] documented as of this encounter Visit Diagnoses Diagnosis Benign essential hypertension [I10] Essential hypertension, benign documented in this encounter Care Teams Hydraulic Plumber Helper Relationship Specialty Start Date End Date [place] VIKKI Goldstein [address] [place] [address] PCP - General Family Medicine 05/16/21 documented as of this encounter
--- OUTSIDE RECORDS SUMMARY | 2024-10-15 09:59 | XMS_ITS | Encounter Summary ---
Author Organization [employer] Address [address] [place] [address] 7 [place] [address] Care Team Providers Care Technologies Division Chair Name Role Phone Angelita Benavides [facility] Primary Care Provider [phone] Reason for Visit * Reason Onset Date Comments Lab Results 10/06/2024 Encounter Details Date Type Department Care Team (Late st Contact Info) Description 10/06/2024 Telephone [facility] [address] [place], [place] [phone] [place] Angelita [facility] [address] [place], [place] [phone] Lab Results Social History Tobacco Use Types Packs/Day Years [...] AM EDT documented as of this encounter Miscellaneous Notes * Telephone Encounter - Rachel Lobato RN - 10/06/2024 2:13 PM EST Telephone call to the pt regarding the following message from Angelita [place] VIKKI : Please advise patient that his labs are stable however show persistent cholesterol elevation. I know that he was fairly noncompliant with his medications when I last saw him. Please encourage tobacco cessation and me dication compliance. Pt was advised of this message . Pt verbalized understanding ,and noted he heard the plan. documented in this encounter Plan of Treatment Upcoming Encounters Date Type Department Care Team (Late st Contact Info) Description 10/22/2024 2:00 PM EST Clinical Support [facility] [address] [place] [address] documented as of this encounter Visit Diagnoses Not on filedocumented in this encounter Care Teams Technologies Division Chair Relationship Specialty Start Date End Date Angelita Benavides FNP [address] [place] [address] PCP - General Family Medicine 05/16/21 documented as of this encounter
--- OUTSIDE RECORDS SUMMARY | 2024-10-15 09:59 | XMS_ITS | Encounter Summary ---
Author Organization [employer] Address [address] [place] [address] Care Team Providers Care Devil Tender Name Role Phone Angelita Benavides [facility] Primary Care Provider [phone] Encounter Details Date Type Department Care Team (Latest Contact Info) Description 09/25/2024 Travel Social History Tobacco Use Types Packs/Day [...] Description 10/22/2024 2:00 PM EST Clinical Support [facility] [address] [place] [address] documented as of this encounter Visit Diagnoses Not on filedocumented in this encounter Care Teams Devil Tender Relationship Specialty Start Date End Date Angelita Benavides FNP [address] [place] [address] PCP - General Family Medicine 05/16/21 documented as of this encounter
--- OUTSIDE RECORDS SUMMARY | 2024-10-15 09:59 | XMS_ITS | Encounter Summary ---
Author Organization [employer] Address [address] [facility] 7t [place] [address] Care Team Providers Care Decision Support Analyst Name Role Phone Angelita Benavides [facility] Primary Care Provider [phone] Encounter Details Date Type Department Care Team (Late st Contact Info) Description 09/25/2024 9:00 AM EST Immunization [facility] [address] [place] [address] Nayeli Kay LPN Encounter for immunization (Primary Dx) Social History Tobacco Use Types Packs/Day Years [...] as of this encounter Progress Notes * Nayeli Kay LPN - 09/25/2024 9:00 AM EST Subjective Patient ID: Rai Chilel is a 64 y.o. male who presents Pt here for [id number] Pfizer Comirnaty, Pfizer, 12 yr+, vaccine. Pt questionnaire indicates that pt is eligible to receive vaccine. Pt deniesallergies to vaccine components. Pt educated as to signs/symptoms of Covid infection and potential side effects of vaccination including low grade fevers, intermittent chills, fatigue, body aches andswelling/redness/pain at injection site. Pt informed of benefits of adequate hydration post vaccinations. Pt tolerated injection well and monitored for 15 minutes documented in this encounter Plan of Treatment Upcoming Encounters Date Type Department Care Team (Late st Contact Info) Description 10/22/2024 2:00 PM EST Clinical Support [facility] [address] [place] [phone] documented as of this encounter Visit Diagnoses Diagnosis Encounter for immunization- Primary documented in this encounter Care Teams Decision Support Analyst Relationship Specialty Start Date End Date Angelita Benavides FNP [address] [place] [address] PCP - General Family Medicine 05/16/21 documented as of this encounter
--- OUTSIDE RECORDS SUMMARY | 2024-10-15 09:59 | XMS_ITS | Encounter Summary ---
Author Organization [employer] Address [address] [facility] [address] [place] [address] Care Team Providers Care Business Systems Developer Name Role Phone Angelita Benavides [facility] Primary Care Provider [phone] Encounter Details Date Type Department Care Team (Latest Contact Info) Description 10/08/2024 Travel Social History Tobacco Use Types Packs/Day [...] Description 10/22/2024 2:00 PM EST Clinical Support [facility] [address] [place] [address] documented as of this encounter Visit Diagnoses Not on filedocumented in this encounter Care Teams Business Systems Developer Relationship Specialty Start Date End Date Angelita Benavides FNP [address] [place] [address] PCP - General Family Medicine 05/16/21 documented as of this encounter
--- OUTSIDE RECORDS SUMMARY | 2024-10-15 10:00 | XMS_ITS | Encounter Summary ---
Author Organization [employer] Address [address] [place] [address] [address] [place] [address] Care Team Providers Care Flight Instructor Name Role Phone Angelita Benavides [facility] Primary Care Provider [phone] Encounter Details Date Type Department Care Team (Late st Contact Info) Description 05/09/2023 Orders Only [facility] MED & PEDS [address] [place] [address] Archana Mercado LPN Social History Tobacco Use [...] Description 10/22/2024 2:00 PM EST Clinical Support [facility] [address] [place] [address] documented as of this encounter Visit Diagnoses Not on filedocumented in this encounter Care Teams Flight Instructor Relationship Specialty Start Date End Date [place]ita FNP [address] [place] [address] PCP - General Family Medicine 05/16/21 documented as of this encounter
--- OUTSIDE RECORDS SUMMARY | 2024-10-15 10:00 | XMS_ITS | Encounter Summary ---
Author Organization [employer] Address [address] [place] [id number] Care Team Providers Care Ship'S Pilot Name Role Phone Angelita BenavidesP Primary Care Provider [phone] Reason for Referral * Consultation (Routine) - Authorized Specialty Diagnoses / Procedures Referred By Yennifer gaston Referred To Contact Cardiology Diagnoses Left ventricular hypertrophy Angelita Benavides FNP [address] [place], [place] Phone: tel: fax: Miguelito Barnhart MD [address] [place] [address] Phone: tel: fax: Referral ID Status Reason Start Date Expiration Date Visits Requested Visits Authorized [id number] Authorized Specialty Services Required 09/24/2024 09/24/2025 1 1 * Consultation (Routine) - Closed Specialty Diagnoses / Procedures Referred By Yennifer gaston Referred To Contact Ophthalmology Diagnoses Hypertensive retinopathy of both eyes Angelita Benavides FNP [address] [place], [place] Phone: tel: fax: [facility] [place] [address] [place] [address] Phone: tel:[phone] fax: Referral ID Status Reason Start Date Expiration Date V isits Requested Visits Authorized [id number] Closed Specialty Services Required 09/24/2024 09/24/2025 1 1 * Imaging (Routine) - Authorized Specialty Diagnoses / Procedures Referred By Yennifer t Referred To Contact Cardiology Diagnoses Cardiomyopathy, unspecified type (CMS/HCC) Procedures Transthoracic Echo (TTE) Complete Angelita Benavides FNP [address] [place] [address] Phone: tel: fax: [address] Phone: tel: fax: Referral ID Status Reason Start Date Expiration Date Visits Requested Visits Authorized [id number] Authorized Perform Procedure 09/24/2024 09/24/2025 1 1 Reason for Visit * Reason Comments Annual Exam Encounter Details Date Type Department Care Team ([facility] st Contact Info) Description 09/23/2024 2:00 PM EST Office Visit [facility] MEDICINE [address] [place] [address] Angelita Benavides FNP [address] [place] [address] Healthcare maintenance (Primary Dx); Benign essential hypertension; [...] the past 12 months, has t he [employer] gas, oil or water [employer] threatened to shut off services in your [...] this encounter Progress Notes * [facility], MANAGER RN CASE - 09/23/2024 2:00 PM EST SUBJECTIVE: Rai Chilel is a 64 y.o. year old male with HTN, HLD, LVH (last echo 03/2020 EF 60-65%), BPH, hypertensive retinopathy who presents for routine physical exam and to reestablish care at [facility]. Acute Concerns: Erectile Dysfunction --difficulty achieving [...] of both eyes - Referral back to [facility] to reestablish care - Referral to Ophthalmology; [...] flomax - Lost to follow up with [facility] urology - Will updated PSA; refer back [...] Referral placed 09/24/24 Dental: Overdue--patient to contact [facility] Adult IZ: Covid: Will defer to [...] referral to LDLCT program. Faxed today to [facility] AAA Screening: Age 65 Mental health screening [...] 2:00 PM EST Clinical Support [facility] MEDICINE [address] [place] [id number] Scheduled Orders Name Type Priority Associated Diagnoses Orde r Schedule Transthoracic Echo (TTE) Complete Echocardiography Routine Left ventricular hypertrophy Expected: 09/24/2024 (Approximate), Expires: 09/24/2026 Scheduled Referrals Name Type Priority Associated Diagnoses Order Schedule Referral to Ophthalmology Outpatient Referral Routine Hypertensive retinopathy of both eyes Expected: 09/24/2024 (Approximate), Expires: 09/24/2025 Referral to Cardiology Outpatient Referral Routine Left ventricular hypertrophy Expected: 09/24/2024 (Approximate), Expires: 09/24/2025 documented as of this encounter Procedures Procedure Name Priority Date/Time Associated Diagnosis Comments TESTOSTERONE, TOTAL, MALES (ADULT), IA Routine 09/25/2024 8:43 AM EST Erectile dysfunction, unspecified erectile dysfunction type PSA, TOTAL Routine 09/25/2024 8:43 AM EST Erectile dysfunction, unspecified erectile dysfunction type HEMOGLOBIN A1C Routine 09/25/2024 8:43 AM EST Benign essential hypertension LIPID PANEL, STANDARD Routine 09/25/2024 8:43 AM EST Benign essential hypertension COMPREHENSIVE METABOLIC PANEL Routine 09/25/2024 8:43 AM EST Benign essential hypertension documented in this encounter Results * Hemoglobin A1c (09/25/2024 8:43 AM EST) Hemoglobin A1c 5.6 <6.0 % [facility] Comment:Hemoglobin A1C Refer ence Range Adults: 4.8 - 6.0 % Non diabetic: < 6.0 % Goal: < 7.0 %Additional Action Suggested: > 8.0 %Note: Hemoglobin A1c results are invalid for patients with abnormal amounts of HbF. Blood transfusions may impact the HbA1c concentration in the patient sample. Estimated Average Glucose 114 mg/dL [facility] Comment:eAG = Estimated ave rage glucose which is %A1C expressed asaverage glucose, using the formula of the [id number] Glucose study (ADAG), Diabetes Care, Vol.31,#8,Mar. 2007 Blood Venous blood specimen / Unknown 09/25/2024 8:43 AM EST 09/25/2024 11:33 AM EST [facility] LAB BLOOD ORDERABLES Final Re sult [facility] [address] [place] [address] [phone] * (ABNORMAL) Lipid Panel, Standard (09/25/2024 8:43 AM EST) Triglycerides 111 <150 mg/dL [facility] Comment:Desirable Triglyceri de: less than 150 mg/dLBorderline High Triglyceride 150-199 mg/dLHigh Triglyceride: 200-499 mg/dLVery High Triglyceride: greater than or equal to 5OO mg/dL Cholesterol 205(H) <200 mg/dL [facility] Comment:Desirable Cholestero l: less than 200 mg/dLBorderline High Cholesterol: 200-239 mg/dLHigh Cholesterol: greater than 239 mg/dL LDL Cholesterol Calculated 125(H) <100 mg/dL [facility] Comment:Desirable LDL: less than 100 mg/dLNear Optimal/Above Optimal LDL: 110- 129 mg/dLBorderline High LDL: 130-159 mg/dLHigh LDL: 160-189 mg/dLVery High LDL: greater than or equal to 190 mg/dL HDL Cholesterol 58 >40 mg/dL [facility] Comment:Desirable HDL: great er than 40 mg/dL Note: This HDL assay may give artificially low results in patients with liver disease. Blood Venous blood specimen / Unknown 09/25/2024 8:43 AM EST 09/25/2024 11:30 AM EST [facility] LAB BLOOD ORDERABLES Final Re sult [facility] [address] [place] [phone] * (ABNORMAL) Comprehensive Metabolic Panel (09/25/2024 8:43 AM EST) Sodium 141 135 - 145 mmol/L [facility] Potassium 3.3 3.3 - 5.1 mmol/L [facility] Chloride 105 96 - 108 mmol/L [facility] Carbon Dioxide 32(H) 22 - 29 mmol/L [facility] Anion Gap 7(L) 12 - 20 [facility] Urea Nitrogen (BUN) 19(H) 9 - 16 mg/dL [facility] Creatinine, Serum 1.14 0.5 - 1.4 mg/dL [facility] Estimated Glomerular Filt Rate >60 [facility] Comment:Chronic Kidney Disea se: Estimated GFR < 60 mL/min/1.84y5Nhojrq Kidney Disease: Estimated GFR < 15 mL/min/1.73m2 Glucose 89 60 - 115 mg/dL [facility] Calcium 9.7 8.4 - 10.2 mg/dL [facility] Bilirubin, Total 0.4 0.0 - 1.0 mg/dL [facility] Aspartate Amino Transferase 35 5 - 37 U/L [facility] Alanine Aminotransferase 33 0 - 40 U/L [facility] Total Protein 7.7 6.5 - 8.0 g/dL [facility] Albumin Level 4.1 3.5 - 5.0 g/dL [facility] Alkaline Phosphatase 109 39 - 117 U/L [facility] Blood Venous blood specimen / Unknown 09/25/2024 8:43 AM EST 09/25/2024 11:30 AM EST [facility] LAB BLOOD ORDERABLES Final Re sult Performing Organization Address [facility]/[employer] Phone Number [facility] [address] [place] [address] [phone] * PSA,Total (09/25/2024 8:43 AM EST) Prostate Specific Antigen 1.60 <0.05 - 4.0 ng/mL [facility] Comment:PSA methodology: Abb rachel Duron i ChemiluminescentMicroparticle Immunoassay (CMIA) Blood Venous blood specimen / Unknown 09/25/2024 8:43 AM EST 09/25/2024 11:30 AM EST [facility] LAB BLOOD ORDERABLES Final Re sult Performing Organization Address [facility]/[employer] Phone Number [facility] [address] [place] [phone] * Testosterone, Total, males (Adult), IA (09/25/2024 8:43 AM EST) Testosterone, Total 482 250 - 1100 ng/dL [facility] Comment:Men with clinically significant hypogonadalsymptoms and testosterone values repeatedly inthe range of the 200-300 ng/dL or less, maybenefit from testosterone treatment afteradequate risk and benefits counseling.For additional information, please refer tohttp://[email or web address](This link is being provided for informational/educational purposes only.)This test was developed and its analytical performancecharacteristics have been determined by [employer] [place], [place]. It hasnot been cleared or approved by the U.S. Food and DrugAdministration. This assay has been validated pursuantto the CLIA regulations and is used for clinicalpurposes.THIS TEST WAS PERFORMED AT:[facility] [place] [address]LFUAIXMPARVIN AGUILAR MD,PHD Blood Venous blood specimen / Unknown 09/25/2024 8:43 AM EST 09/25/2024 11:30 AM EST [facility] LAB BLOOD ORDERABLES Final Re sult [facility] [address] [place] [phone] [phone] documented in this encounter Visit Diagnoses Diagnosis Healthcare maintenance- [...] adult documented in this encounter Care Teams Ship'S Pilot Relationship Specialty Start Date End Date [facility] [address] [place] [phone] PCP - General Family Medicine 05/16/21 documented as of this encounter
--- OUTSIDE RECORDS SUMMARY | 2024-10-15 10:00 | XMS_ITS | Encounter Summary ---
Author Organization [employer] Address [address] [place] [address] [address] [place] [address] Care Team Providers Care Beveling Machine Operator Name Role Phone Makayla, Angelita [facility] Primary Care Provider [phone] Encounter Details Date Type Department Care Team (Late Contact Info) Description 11/28/2022 Orders Only [facility] [address] [place] [address] Sindhu Abel LPN Social History Tobacco Use [...] Description 10/22/2024 2:00 PM EST Clinical Support [facility] MEDICINE [address] [place], [place] [phone] documented as of this encounter Visit Diagnoses Not on filedocumented in this encounter Care Teams Beveling Machine Operator Relationship Specialty Start Date End Date Angelita Benavides FNP [address] [place] [address] PCP - General Family Medicine 05/16/21 documented as of this encounter
--- OUTSIDE RECORDS SUMMARY | 2024-10-15 10:00 | XMS_ITS | Encounter Summary ---
Author Organization [employer] Address [address] [place] [address] Care Team Providers Care Digital Account Executive Name Role Phone Angelita Benavides [facility] Primary Care Provider [phone] Encounter Details Date Type Department Care Team [...] Description 10/22/2024 2:00 PM EST Clinical Support [facility] [address] [place] [address] documented as of this encounter Visit Diagnoses Not on filedocumented in this encounter Care Teams Digital Account Executive Relationship Specialty Start Date End Date Angelita Benavides FNP [address] [place] [address] PCP - General Family Medicine 05/16/21 documented as of this encounter
--- OUTSIDE RECORDS SUMMARY | 2024-10-15 10:00 | XMS_ITS | Encounter Summary ---
Author Organization [employer] Address [address] [place] [address] [address] [place] [address] Care Team Providers Care Customer Specialist Name Role Phone Angelita Benavides [facility] Primary Care Provider [phone] Encounter Details Date Type Department Care Team (Late st Contact Info) Description 10/17/2022 Orders Only [facility]S [address] [place] [address] Sindhu Abel LPN Social History Tobacco Use [...] Description 10/22/2024 2:00 PM EST Clinical Support [facility] [address] [place] [address] documented as of this encounter Visit Diagnoses Not on filedocumented in this encounter Care Teams Customer Specialist Relationship Specialty Start Date End Date MakaylaAngelita FNP [address] [place] [address] PCP - General Family Medicine 05/16/21 documented as of this encounter
--- OUTSIDE RECORDS SUMMARY | 2024-10-15 10:00 | XMS_ITS | Clinical Summary ---
Author Organization [employer] Address [address] [place] [address] 7 [place] [address] Care Team Providers Care Gear Tooth Grinding Machine Operator Name Role Phone Angelita Benavides [facility] Primary Care Provider [phone] Allergies Active Allergy Reactions Criticality Noted Date Comments Penicillins 06/08/2016 Other Reaction(s): Unknown Medications atorvastatin (Lipitor) 80 MG tabletIndications :Mixed hyperlipidemia TAKE 1 TABLET BY MOUTH EVERY DAY AT BEDTIME 30 tablet 5 Active amLODIPine (Norvasc) 5 MG tabletIndications :Benign essential hypertension TAKE 1 TABLET BY MOUTH EVERY DAY IN THE MORNING 30 tablet 5 024 Active chlorthalidone (Hygroton) 25 MG tabletIndications :Essential hypertension TAKE 1 TABLET BY MOUTH EVERY DAY 30 tablet 5 024 Active pantoprazole (ProtoNix) 20 MG EC tablet TAKE 2 TABLETS BY MOUTH EVERY DAY 60 tablet 5 Active tamsulosin (Flomax) 0.4 MG 24 hr capsuleIndication s:Unspecified symptoms and signs involving the genitourinary system TAKE 1 CAPSULE BY MOUTH EVERY DAY 30 MINUTES AFTER THE same MEAL 30 capsule 5 Active gabapentin (Neurontin) 100 MG capsule TAKE 2 CAPSULES BY MOUTH EVERY DAY IN THE EVENING BEFORE BEDTIME FOR RESTLESS LEGS 60 capsule 5 Active docusate sodium (Colace) 100 MG capsule Take 1 capsule (100 mg) by mouth 2 times daily. 180 capsule 3 024 2024 Active polycarbophil (Fibercon) 625 MG tablet Take 1 tablet (625 mg) by mouth 2 times daily. 180 tablet 3 024 2024 Active polyethylene glycol, PEG, 3350 (MiraLax) 17 GM/SCOOP powder Take 17 g by mouth if needed each day (constipation ). 527 g 1 024 2024 Active fluticasone (Flonase) 50 MCG/ACT nasal spray Administer 2 sprays into each nostril Once per day. Shake gently. Before first use, prime pump. After use, clean tip and replace cap. 16 g 3 024 2024 Active cetirizine (ZyrTEC) 10 MG tabletIndications :Seasonal allergies Take 1 tablet (10 mg) by mouth Once per day. 30 tablet 3 Active nicotine (Nicoderm CQ) 14 MG/24HR patchIndications: Tobacco use disorder Place 1 patch on the skin 1 (one) time each day at the same time. 30 patch 3 025 2024 Active nicotine polacrilex (Nicorette) 4 MG gumIndications:To bacco use disorder Chew 1 each (4 mg) if needed for smoking cessation. 100 each 3 025 2024 Active escitalopram (Lexapro) 5 MG tablet Take 1 tablet (5 mg) by mouth Once per day. 30 tablet 5 Active sildenafil (Viagra) 50 MG tabletIndications :Erectile dysfunction, unspecified erectile dysfunction type Take 1 tablet (50 mg) by mouth if needed for erectile dysfunction. 10 tablet 025 2025 Active lisinopril 40 MG tabletIndications :Essential hypertension Take 1 tablet (40 mg) by mouth Once per day. 90 tablet 3 025 2025 Active escitalopram (Lexapro) 5 MG tablet TAKE 1 TABLET BY MOUTH EVERY DAY 30 tablet 5 024 2024 Discontinued(R eorder (will not trigger notification to Pharmacy)) lisinopril 20 MG tabletIndications :Essential hypertension TAKE 1 TABLET BY MOUTH EVERY DAY 30 tablet 5 024 2024 Discontinued(R eorder (will not trigger notification to Pharmacy)) sildenafil (Viagra) 50 MG tabletIndications :Erectile dysfunction, unspecified erectile dysfunction type Take 1 tablet (50 mg) by mouth if needed for erectile dysfunction. 10 tablet 025 2024 Discontinued(R eorder (will not trigger notification to Pharmacy)) Active Problems Problem Noted Date Diagnosed Date [...] Encounters Date Type Department Care Team Description 10/08/2024 1:30 PM EST Clinical Support [facility] MEDIC[facility] [address] [place] [address] Maricruz Grimaldo, LJ Benign essential hypertension [I10] 10/08/2024 Refill [facility] MED[facility]INE [address] [place] [address] Angelita Benavides FNP Essential hypertension 10/08/2024 Travel 10/08/2024 Refill [facility] & PEDS [address] [place], [place] [phone] [place] [facility] Erectile dysfunction, unspecified erectile dysfunction type 10/06/[address] [address] [place] FNP Lab Results 09/25/2024 9:00 AM EST Immunization [address] [address] Nayeli Kay LPN Encounter for immunization (Primary Dx) 09/25/2024 Travel 09/23/2024 2:00 PM EST Office Visit [address] [address] [place] [facility] Healthcare maintenance (Primary Dx); Benign essential hypertension; [...] in adult 09/23/2024 Travel 09/10/2024 Patient Outreach [address] [address] [place] br[place] FNP Care Coordination (CHW outreach SDOH pest control - referral completed ) 09/10/2024 Patient Outreach [address] [address] [place] [facility] Pre-visit Planning (SDOH screening negative and tobacco screening negative) 08/07/2024 10:30 AM EST Office Visit [address] [address] Sindhu Orellana DO PND (post-nasal drip) (Primary Dx); Rectal bleeding; Other constipation; Seasonal allergies 08/07/2024 Travel 08/06/[address] [address] MakaylaAngelita britt [facility] Nurse Triage 07/22/[address] [address] [place] [facility] Unspecified symptoms and signs involving the genitourinary system; Seasonal allergies from Last 3 Months Immunizations Name Administration Dates Next Due Influenza Injectable Quadriv alant Preservative Free IIV4 MDCK 07/09/2019 Influenza injectable quadriv alent IIV4 with preservative 10/21/2017 Influenza injectable quadriv alent preservative free 07/06/2022,11/08/2021,08/09/2016 Influenza, seasonal, injecta ble, preservative free 09/23/2024 Pfizer Covid-19 Vaccine 12+ 09/25/2024 Pneumococcal Conjugate PCV 20 09/23/2024 RSV Bivalent [...] Pulse 95 10/08/2024 3:29 PM EST Temperature 36.4 ??C (97.6 ??F) 09/23/2024 2:02 PM ES T Respiratory Rate 20 10/08/2024 3:28 PM EST Oxygen Saturation 98% 10/08/2024 3:28 PM EST Inhaled Oxygen Concentration - - Weight 109 kg (241 lb 6.4 oz) 09/23/2024 2:02 PM EST Height 182.9 cm (6') 09/23/2024 2:02 PM EST Body Mass Index 32.74 09/23/2024 2:02 PM EST Plan of Treatment Upcoming Encounters Date Type Department Care Team (Late st Contact Info) Description 10/22/2024 2:00 PM EST Clinical Support [address] [address] Health Maintenance Due Date Last Done Comments CT Colonography 1960 Colonoscopy 1960 Colorectal Cancer Screening 1960 Depression Screening 1960 FIT DNA/Cologuard 1960 FIT 1960 FOBT 1960 HIV Screening 1960 Sigmoidoscopy 1960 Alcohol/Substance Use Screening 1972 SDOH Screening 09/10/2025 09/10/2024 Tobacco Screening 09/24/2025 09/24/2024 DTaP/Tdap/Td Vaccines (2 - Td or Tdap) 08/09/2026 08/09/2016 Lipid Panel 09/25/2029 09/25/2024, 03/0 03/2022, 05/25/2020 Hepatitis C Screening Completed 05/25/2020 RSV Patients and Patients Aged 60 years or older Completed 09/06/2023 Zoster Vaccines Completed 11/22/2023, 09/06/2023 Influenza Vaccine Completed 09/23/2024, , 11/08/2021, Additional history exists Pneumococcal Vaccine: 50+ Years Completed 09/23/2024 COVID-19 Vaccine Completed 09/25/2024, , 12/28/2020, Additional history exists HIB Vaccines Aged Out No longer eligi [...] Procedure Name Priority Date/Time Associated Diagnosis Comments HEMOGLOBIN A1C Routine 09/25/2024 8:43 AM EST Benign essential hypertension LIPID PANEL, STANDARD Routine 09/25/2024 8:43 AM EST Benign essential hypertension COMPREHENSIVE METABOLIC PANEL Routine 09/25/2024 8:43 AM EST Benign essential hypertension PSA, TOTAL Routine 09/25/2024 8:43 AM EST Erectile dysfunction, unspecified erectile dysfunction type TESTOSTERONE, TOTAL, MALES (ADULT), IA Routine 09/25/2024 8:43 AM EST Erectile dysfunction, unspecified erectile dysfunction type ZZZ HISTORICAL HEPATITIS C AB W/REFL TO HCV RNA, QN, PCR Routine 05/25/2020 11:14 AM EDT from Last 3 Months or Most Recently Relevant to Health Maintenance Results * Testosterone, Total, males (Adult), IA (09/25/2024 8:43 AM EST) Testosterone, Total 482 250 - 1100 ng/dL [facility] Comment:Men with clinically significant hypogonadalsymptoms and testosterone values repeatedly inthe range of the 200-300 ng/dL or less, maybenefit from testosterone treatment afteradequate risk and benefits counseling.For additional information, please refer tohttp://education.[employer].Plays.IO/faq/LgxqxEbmcykvsihfrAKGBRPMYR718(This link is being provided for informational/educational purposes only.)This test was developed and its analytical performancecharacteristics have been determined by [employer] [place], [place]. It hasnot been cleared or approved by the U.S. Food and DrugAdministration. This assay has been validated pursuantto the CLIA regulations and is used for clinicalpurposes.THIS TEST WAS PERFORMED AT:[employer] [place] [address]UYXFOSDPARVIN AGUILAR MD,PHD Blood Venous blood specimen / Unknown 09/25/2024 8:43 AM EST 09/25/2024 11:30 AM EST [facility] LAB BLOOD ORDERABLES Final Re sult Performing Organization Address City/[facility]/ZIP Co de Phone Number [facility] [address] [place] [phone] * PSA,Total (09/25/2024 8:43 AM EST) Prostate Specific Antigen 1.60 <0.05 - 4.0 ng/mL [facility] Comment:PSA methodology: Abb rachel Alitara i ChemiluminescentMicroparticle Immunoassay (CMIA) Blood Venous blood specimen / Unknown 09/25/2024 8:43 AM EST 09/25/2024 11:30 AM EST [facility] LAB BLOOD ORDERABLES Final Re sult Performing Organization Address [facility] Co de Phone Number [facility] [address] [place] [phone] * Hemoglobin A1c (09/25/2024 8:43 AM EST) Hemoglobin A1c 5.6 <6.0 % [facility] Comment:Hemoglobin A1C Refer ence Range Adults: 4.8 - 6.0 % Non diabetic: < 6.0 % Goal: < 7.0 %Additional Action Suggested: > 8.0 %Note: Hemoglobin A1c results are invalid for patients with abnormal amounts of HbF. Blood transfusions may impact the HbA1c concentration in the patient sample. Estimated Average Glucose 114 mg/dL [facility] Comment:eAG = Estimated ave rage glucose which is %A1C expressed asaverage glucose, using the formula of the Z1V-PkzocnlNnaxtkd Glucose study (ADAG), Diabetes Care, Vol.31,#8,Mar. 2007 Blood Venous blood specimen / Unknown 09/25/2024 8:43 AM EST 09/25/2024 11:33 AM EST [facility] LAB BLOOD ORDERABLES Final Re sult [facility] [address] [place] [phone] * (ABNORMAL) Lipid Panel, Standard (09/25/2024 8:43 AM EST) Triglycerides 111 <150 mg/dL [facility] Comment:Desirable Triglyceri de: less than 150 mg/dLBorderline High Triglyceride 150-199 mg/dLHigh Triglyceride: 200-499 mg/dLVery High Triglyceride: greater than or equal to 5OO mg/dL Cholesterol 205(H) <200 mg/dL [facility] Comment:Desirable Cholestero l: less than 200 mg/dLBorderline High Cholesterol: 200-239 mg/dLHigh Cholesterol: greater than 239 mg/dL LDL Cholesterol Calculated 125(H) <100 mg/dL [facility] Comment:Desirable LDL: less than 100 mg/dLNear Optimal/Above Optimal LDL: 110- 129 mg/dLBorderline High LDL: 130-159 mg/dLHigh LDL: 160-189 mg/dLVery High LDL: greater than or equal to 190 mg/dL HDL Cholesterol 58 >40 mg/dL [facility] Comment:Desirable HDL: great er than 40 mg/dL Note: This HDL assay may give artificially low results in patients with liver disease. Blood Venous blood specimen / Unknown 09/25/2024 8:43 AM EST 09/25/2024 11:30 AM EST [facility] LAB BLOOD ORDERABLES Final Re sult [facility] [address] [place] [phone] * (ABNORMAL) Comprehensive Metabolic Panel (09/25/2024 8:43 AM EST) Sodium 141 135 - 145 mmol/L [facility] Potassium 3.3 3.3 - 5.1 mmol/L [facility] Chloride 105 96 - 108 mmol/L [facility] Carbon Dioxide 32(H) 22 - 29 mmol/L [facility] Anion Gap 7(L) 12 - 20 [facility] Urea Nitrogen (BUN) 19(H) 9 - 16 mg/dL [facility] Creatinine, Serum 1.14 0.5 - 1.4 mg/dL [facility] Estimated Glomerular Filt Rate >60 [facility] Comment:Chronic Kidney Disea se: Estimated GFR < 60 mL/min/1.83k7Zuprys Kidney Disease: Estimated GFR < 15 mL/min/1.73m2 Glucose 89 60 - 115 mg/dL [facility] Calcium 9.7 8.4 - 10.2 mg/dL [facility] Bilirubin, Total 0.4 0.0 - 1.0 mg/dL [facility] Aspartate Amino Transferase 35 5 - 37 U/L [facility] Alanine Aminotransferase 33 0 - 40 U/L [facility] Total Protein 7.7 6.5 - 8.0 g/dL [facility] Albumin Level 4.1 3.5 - 5.0 g/dL [facility] Alkaline Phosphatase 109 39 - 117 U/L [facility] Blood Venous blood specimen / Unknown 09/25/2024 8:43 AM EST 09/25/2024 11:30 AM EST [facility] LAB BLOOD ORDERABLES Final Re sult [facility] [address] [place] [phone] * HEPATITIS C AB W/REFL TO HCV [...] a test for HCV RNA (test code 75656) is suggested. ?? For additional information please refer to http://[employer] Oy/faq/UKB87n0 (This link is being provided for informational/ educational purposes only.) ?? HEPATITIS C ANTIBODY NON-REACT DINO NON-REACT DINO [facility] INDEX 0.03 <1.00 [facility] Comment: ?? HCV antibody was non-reactive. There is no laboratory ?? evidence of HCV infection. ?? In most cases, no further action is required. However, if recent HCV exposure is suspected, a test for HCV RNA (test code 17477) is suggested. ?? For additional information please refer to http://[employer] Oy/faq/ORF45l5 (This link is being provided for informational/ educational purposes only.) ?? HEPATITIS C ANTIBODY NON-REACT DINO NON-REACT DINO [facility] INDEX 0.03 <1.00 [facility] Comment: ?? HCV antibody was non-reactive. There is no laboratory ?? evidence of HCV infection. ?? In most cases, no further action is required. However, if recent HCV exposure is suspected, a test for HCV RNA (test code 57938) is suggested. ?? For additional information please refer to http://[employer]/faq/XRI18l8 (This link is being provided for informational/ educational purposes only.) ?? HEPATITIS C ANTIBODY NON-REACT DINO NON-REACT DINO [facility] INDEX 0.03 <1.00 [facility] Comment: ?? HCV antibody was non-reactive. There is no laboratory ?? evidence of HCV infection. ?? In most cases, no further action is required. However, if recent HCV exposure is suspected, a test for HCV RNA (test code 92193) is suggested. ?? For additional information please refer to http://SCYNEXIS.Twenty20.com/faq/XRM50x3 (This link is being provided for informational/ educational purposes only.) ?? 05/25/2020 11:1 4 AM EDT us Historical Provider HISTORICAL/NON ORDERABLE LABS Final Result [facility] [address] from Last 3 Months or Most Recently Relevant to Health Maintenance Insurance , [address] [place] [address] Care Teams Gear Tooth Grinding Machine Operator Relationship Specialty Start Date End Date MakaylaAngelita britt FNP [address] [place] [phone] PCP - General Family Medicine 05/16/21
--- OUTSIDE RECORDS SUMMARY | 2024-10-15 10:00 | XMS_ITS | Encounter Summary ---
Author Organization [employer] Address [address] [place] [address] 7 [place] [address] Care Team Providers Care Truck Dock Material Mover Name Role Phone Makayla, [facility] Primary Care Provider [phone] Reason for Visit * Reason Onset Date Comments Med Refill 10/08/2024 Encounter Details Date Type Department Care Team (Late st Contact Info) Description 10/08/2024 Refill [facility] [address] [place], [place] [phone] [place] [facility] [address] [place], [place] [phone] Essential hypertension Social History Tobacco Use Types Packs/Day Years [...] encounter Miscellaneous Notes * Telephone Encounter - Maricruz Grimaldo RN - 10/08/2024 3:34 PM EST Increased dose of lisinopril form 20 to 40mg d/t RN BP visit. Thank you! documented in this encounter Plan of Treatment Upcoming Encounters Date Type Department Care Team (Late st Contact Info) Description 10/22/2024 2:00 PM EST Clinical Support [facility] [address] [place] [address] documented as of this encounter Visit Diagnoses Diagnosis Essential hypertension Unspecified essential hypertension documented in this encounter Care Teams Truck Dock Material Mover Relationship Specialty Start Date End Date Angelita Benavides FNP [address] [place] [address] PCP - General Family Medicine 05/16/21 documented as of this encounter
== END ==
LOC: HO.CARD 09:09
PROVIDERS: PCP Registered Nurse; Visit Provider Registered Nurse
DX: I51.7 Cardiomegaly (principal)
CPT/HCPCS: 93306; Q9957

== ENCOUNTER → 2024-10-15 09:12 | Outpatient (BNV) | payer OTHER, SELFPAY | PROVIDERS: PCP Registered Nurse; Visit Provider Internal Medicine | DX: I42.2 Other hypertrophic cardiomyopathy (principal); I51.7 Cardiomegaly; I35.8 Other nonrheumatic aortic valve disorders | CPT/HCPCS: 93306 ==

== ENCOUNTER 2024-12-31 15:05 | Outpatient (AMB) | payer OTHER, SELFPAY ==
--- NOTE | 2024-12-31 15:36 | A.OFFVIS_ITS ---
Vital Signs 12/31/24 15:38 Height 6 ft Weight 238 lb 15.697 oz BMI 32.4 BP 164/92 H Blood Pressure Location Lt brachial Position Sitting Pulse 77 Intake Visit Reasons: 2 year f/up echo Intake Note: 2 year follow-up with ekg echo feeling good Gauge Checker Required: No Accompanied by: Self / Same As Patient Allergies No Known Allergies Allergy (Verified 07/02/22 15:46) Medication List - Last Reconciled 12/31/24 by Miguelito Barnhart MD amlodipine 10 mg PO DAILY atorvastatin 80 mg PO DAILY cetirizine 10 mg PO DAILY chlorthalidone 25 mg PO DAILY cholecalciferol (vitamin D3) 50 mcg PO DAILY escitalopram oxalate 5 mg PO DAILY finasteride 5 mg PO DAILY 90 days fluticasone propionate 50 mcg/actuation 1 - 2 sprays intranasal DAILY PRN gabapentin 200 mg PO BEDTIME lisinopril 20 mg PO DAILY metoprolol succinate ER 50 mg PO DAILY pantoprazole 40 mg PO DAILY pantoprazole 20 mg PO BID terazosin 10 mg PO BEDTIME 30 days trazodone 100 mg PO BEDTIME PRN varicella-zoster gE vac,2 of 2 (Shingrix gE Antigen Component) IM HPI Comments Details: Rai returns for follow-up. He was last seen in 2021. That is son, he was seen regarding hypertension/left ventricular hypertrophy. Now he has been referred back. Per list, on many medications including amlodipine, chlorthalidone, lisinopril, metoprolol, terazosin. However, it does not appear that he is very compliant. He states that he does not take them frequently. Even today it did not take medications. Blood pressure is indeed quite high. With regard to cardiac symptoms, no classical angina but he gets some gas type symptoms off and on. Not clear if it is cardiac or GI. With going up stairs, he may feel some shortness of breath. Otherwise, smoker. Denies any excessive alcohol or drugs. [facility] Medical History (Updated 12/14/24 @ 14:29 by Moraima Browning PA-C) Essential hypertension LVH (left ventricular hypertrophy) CKD (chronic kidney disease) BPH w urinary obs/LUTS Nicotine dependence, cigarettes, uncomplicated Obesity Family History Mother Hypertension Father Diabetes Social History Alcohol intake: current Alcohol intake frequency: a few times a month Alcohol type: beer Patient Tobacco Use Status: Current everyday Tobacco user Tobacco use type: Cigarette Cigarettes Per Day: 9 Review of Systems Const Denies chills, Denies fatigue, Denies fever(s), Denies frequent falls, Denies weakness, Denies weight gain and Denies weight loss ENT Denies dizziness Card Denies chest pain, Denies leg edema, Denies lightheadedness, Denies palpitations, Denies dyspnea and Denies dyspnea on exertion Resp Denies cough, Denies dyspnea and Denies dyspnea on exertion GI Denies hematochezia Musc Denies abnormal gait, Denies muscle weakness, Denies numbness, Denies radiating pain into limb and Denies tingling Neuro Denies abnormal gait, Denies dizziness, Denies frequent falls, Denies numbness, Denies tingling and Denies weakness Endo Denies fatigue and Denies palpitations Physical Exam Vital Signs: Last Vital Signs Pulse 77 12/31/24 15:38 BP 164/92 H 12/31/24 15:38 BMI result Body Mass Index 32.4 Const General: comfortable and no acute distress Orientation/consciousness: patient oriented x3 HEENT Other: Unremarkable Head: Yes normal to inspection Neck Neck: Yes normal visual inspection Chest Chest palpation & inspection: normal inspection of the chest Resp Auscultation: clear to auscultation bilaterally Cardio Palpation: normal PMI Heart sounds: S1 normal heart sound present, S2 normal heart sound present, no gallops, Murmur heart sound present systolic II/ and at the right sternal border and no rubs GI Palpation (GI): Soft to palpation Back/Spine/Pelvis Other: unremarkable Skin General skin exam: no rashes or lesions noted Neuro General: patient oriented x3 Extrem General: Yes normal to inspection Psych Mental Status: mental status grossly normal Office Procedures EKG Details: EKG with underlying sinus rhythm at 77/Min; left ventricular hypertrophy with strain pattern but cannot exclude ischemia; [place] [id number], Complete Assessment & Plan Assessment & Plan (1) LVH (left ventricular hypertrophy): Comment: (EF 56% on 10/15/24 Echo) Code(s): I51.7 - Cardiomegaly Category: Medical (2) Essential hypertension: Code(s): I10 - Essential (primary) hypertension Category: Medical (3) Smoking: Code(s): F17.200 - Nicotine dependence, unspecified, uncomplicated Category: Social Hx Plan EKG shows LVH/strain pattern and less likely ischemia. Similar to prior study from 2021. In the echocardiogram, LVEF 56%. Severe left ventricular hypertrophy. Otherwise unremarkable. Overall, poorly controlled hypertension most likely from noncompliance. We discussed about implications from poorly controlled hypertension including heart attack and stroke and emphasized the fact that he must start taking them regularly. Hopefully he starts doing that. During the visit in 2021, we also ordered stress perfusion imaging study but not completed. This time, we will order a coronary CTA and I advised him to complete that study. Otherwise, needs to stop smoking, healthy lifestyle including better diet, regular physical activity among others. Follow-up after the CTA. Orders: Orders Basic Metabolic Panel Today I10 - Essential (primary) hypertension CT Cardiac Coronary Angio Today I25.10 - Atherosclerotic heart disease of [place] coronary artery without angina pectoris Coding Level of Care Code Est Pt Level 4 (66805) Complex EM visit Add On G2211 Diagnoses LVH (left ventricular hypertrophy) I51.7 Essential hypertension I10 Smoking F17.200 CPT Codes EKG - CPT: 48866-Btubvgnxoausynlue, Complete ([id number])
[2024-12-31 15:38] VITALS: BP 164/92; PULSE 77; BMI 32.4
--- OUTSIDE RECORDS SUMMARY | 2024-12-31 15:44 | XMS_ITS | Encounter Summary ---
Author Organization [employer] Address [address] [facility] [address] [place] [address] Care Team Providers Care Atv Mechanic Name Role Phone Makayla Angelita [facility] Primary Care Provider [phone] Encounter Details Date Type Department Care Team (Late st Contact Info) Description 05/09/2023 Orders Only [facility]EDS [address] [place], [place] [phone] Archana Mercado LPN Social History Tobacco Use [...] Care Team (Late st Contact Info) Description 03/26/2025 1:00 PM EDT Office Visit [facility] MEDICINE [address] [place] [address] Angelita Benavides FNP [address] [place] [phone] documented as of this encounter Visit Diagnoses Not on filedocumented in this encounter Care Teams Atv Mechanic Relationship Specialty Start Date End Date Angelita Benavides FNP [address] [place] [address] PCP - General Family Medicine 05/16/21 documented as of this encounter
--- OUTSIDE RECORDS SUMMARY | 2024-12-31 15:44 | XMS_ITS | Encounter Summary ---
Author Organization [employer] Address [address] [facility] 7t [place] [address] Care Team Providers Care Sales Operations Director Name Role Phone Makayla Angelita [facility] Primary Care Provider [phone] Encounter Details Date Type Department Care Team (Late st Contact Info) Description 06/24/2023 Orders Only [facility] MED & PEDS [address] [place] [address] Archana Mercado LPN Social History Tobacco Use [...] Description 03/26/2025 1:00 PM EDT Office Visit [facility] [address] [place] [address] Angelita Benavides FNP [address] [place] [address] documented as of this encounter Visit Diagnoses Not on filedocumented in this encounter Care Teams Sales Operations Director Relationship Specialty Start Date End Date Angelita Benavides FNP [address] [place] [address] PCP - General Family Medicine 05/16/21 documented as of this encounter
--- OUTSIDE RECORDS SUMMARY | 2024-12-31 15:44 | XMS_ITS | Encounter Summary ---
Author Organization [employer] Address [address] [facility] 7t [place] [address] Care Team Providers Care Hi Ranger Operator Name Role Phone Angelita Benavides MANAGER INSURANCE Primary Care Provider [phone] Encounter Details Date Type Department Care Team (Late st Contact Info) Description 11/28/2022 Orders Only [facility] CHC MED & PEDS [address] [place], [place] [phone] Sindhu Abel LPN Social History Tobacco Use [...] Description 03/26/2025 1:00 PM EDT Office Visit [facility] MEDICINE [address] [place] [address] Angelita Benavides FNP [address] [place] [address] documented as of this encounter Visit Diagnoses Not on filedocumented in this encounter Care Teams Hi Ranger Operator Relationship Specialty Start Date End Date Angelita Benavides FNP [address] [place] [address] PCP - General Family Medicine 05/16/21 documented as of this encounter
--- OUTSIDE RECORDS SUMMARY | 2024-12-31 15:44 | XMS_ITS | Clinical Summary ---
Author Organization [employer] Address [address] [facility] 7t [place] [address] Care Team Providers Care Drug Room Clerk Name Role Phone Angelita Benavides [facility] Primary Care Provider [phone] Allergies Active Allergy Reactions Criticality Noted Date Comments Penicillins 06/08/2016 Other Reaction(s): Unknown Medications atorvastatin (Lipitor) 80 MG tabletIndications: Mixed hyperlipidemia [...] the same time. 30 patch 3 5 Active nicotine polacrilex (Nicorette) 4 MG gumIndications:Tob acco use disorder Chew 1 each (4 mg) if needed for smoking cessation. 100 each 3 5 Active escitalopram (Lexapro) 5 MG tablet Take 1 tablet (5 mg) by mouth Once per day. 30 tablet 5 5 Active sildenafil (Viagra) 50 MG tabletIndications: Erectile dysfunction, unspecified erectile dysfunction type Take 1 tablet (50 mg) by mouth if needed for erectile dysfunction. 10 tablet 5 026 Active lisinopril 40 MG tabletIndications: Essential hypertension Take 1 tablet (40 mg) by mouth Once per day. 90 tablet 3 5 026 Active Active Problems Problem Noted [...] Encounters Date Type Department Care Team Description 12/24/2024 Telephone [facility] [address] [place] [address] Angelita Benavides FNP recalls 10/29/2024 Telephone [facility] [address] [place] [address] Angelita Benavides FNP Lung screening 10/15/2024 Telephone [facility] [address] [place] [address] Angelita Benavides FNP Results 10/08/2024 1:30 PM EST Clinical Support [facility] [address] [place] [address] Maricruz Grimaldo, LJ Benign essential hypertension [I10] 10/08/2024 Refill [facility] [address] [place] [address] Angelita Benavides FNP Essential hypertension 10/08/2024 Travel 10/08/2024 Refill [facility] CHC MED & PEDS [address] [place] [address] Angelita Benavides FNP Erectile dysfunction, unspecified erectile dysfunction type 10/06/2024 Telephone [facility] [address] [place] [address] Angelita Benavides FNP Lab Results from Last 3 Months Immunizations Immunization Administration Dates Next Due Influenza Injectable Quadriv [...] Description 03/26/2025 1:00 PM EDT Office Visit [facility] MEDIC[facility] [address] [place] [address] [facility] [address] [place] [address] Health Maintenance Due Date Last Done Comments [...] patient's age to complete this topic Meningococcal B Vaccine Aged Out No l onger eligible based on patient's age to complete [...] Associated Diagnosis Comments LIPID PANEL, STANDARD Routine 09/25/2024 8:43 AM EST Benign essential hypertension ZZZ HISTORICAL HEPATITIS C AB W/REFL TO HCV RNA, QN, PCR Routine 05/25/2020 11:14 AM EDT from Last 3 Months or Most Recently Relevant to Health Maintenance Results * (ABNORMAL) Lipid Panel, Standard (09/25/2024 8:43 AM EST) Triglycerides 111 <150 mg/dL [facility] Comment:Desirable Triglyceri de: less than 150 mg/dLBorderline High Triglyceride 150-199 mg/dLHigh Triglyceride: 200-499 mg/dLVery High Triglyceride: greater than or equal to 5OO mg/dL Cholesterol 205(H) <200 mg/dL [facility] Comment:Desirable Cholestero l: less than 200 mg/dLBorderline High Cholesterol: 200-239 mg/dLHigh Cholesterol: greater than 239 mg/dL LDL Cholesterol Calculated 125(H) <100 mg/dL [facility] Comment:Desirable LDL: less than 100 mg/dLNear Optimal/Above Optimal LDL: 110- 129 mg/dLBorderline High LDL: 130-159 mg/dLHigh LDL: 160-189 mg/dLVery High LDL: greater than or equal to 190 mg/dL HDL Cholesterol 58 >40 mg/dL [facility] Comment:Desirable HDL: great er than 40 mg/dL Note: This HDL assay may give artificially low results in patients with liver disease. Blood Venous blood specimen / Unknown 09/25/2024 8:43 AM EST 09/25/2024 11:30 AM EST [facility] ADJUNCT PHLEBOTOMY INSTRUCTOR LAB BLOOD ORDERABLES Final Re sult [facility] [address] [place] [address] [phone] * HEPATITIS C AB W/REFL TO HCV RNA, QN, PCR (05/25/2020 11:14 AM EDT) HEPATITIS C ANTIBODY NON-REACT DINO NON-REACT DINO Note LAB SYSTEM INDEX 0.03 <1.00 Note LAB SYSTEM Comment: ?? HCV antibody was non-reactive. There is no laboratory ?? evidence of HCV infection. ?? In most cases, no further action is required. However, if recent HCV exposure is suspected, a test for HCV RNA (test code 71206) is suggested. ?? For additional information please refer to http://[employer]/faq/ITW79i0 (This link is being provided for informational/ educational purposes only.) ?? HEPATITIS C ANTIBODY NON-REACT DINO NON-REACT DINO Note LAB SYSTEM INDEX 0.03 <1.00 Note LAB SYSTEM Comment: ?? HCV antibody was non-reactive. There is no laboratory ?? evidence of HCV infection. ?? In most cases, no further action is required. However, if recent HCV exposure is suspected, a test for HCV RNA (test code 89669) is suggested. ?? For additional information please refer to http://[employer]/faq/OWT28e4 (This link is being provided for informational/ educational purposes only.) ?? HEPATITIS C ANTIBODY NON-REACT DINO NON-REACT DINO Note LAB SYSTEM INDEX 0.03 <1.00 Note LAB SYSTEM Comment: ?? HCV antibody was non-reactive. There is no laboratory ?? evidence of HCV infection. ?? In most cases, no further action is required. However, if recent HCV exposure is suspected, a test for HCV RNA (test code 16915) is suggested. ?? For additional information please refer to http://[employer]/faq/HFU88p4 (This link is being provided for informational/ [...] a test for HCV RNA (test code 47574) is suggested. ?? For additional information please refer to http://[employer]/faq/JNN48f1 (This link is being provided for informational/ educational purposes only.) ?? 05/25/2020 11:1 4 AM EDT us Historical Provider HISTORICAL/NON ORDERABLE LABS Final Result Performing Organization Address City/State/[facility] Co de Phone Number [facility] [address] from Last 3 Months or Most Recently Relevant to Health Maintenance Insurance [facility] , [address] [place] [address] Care Teams Drug Room Clerk Relationship Specialty Start Date End Date [place] britt, ADJUNCT PHLEBOTOMY INSTRUCTOR [address] [place] [address] PCP - General Family Medicine 05/16/21
--- OUTSIDE RECORDS SUMMARY | 2024-12-31 15:44 | XMS_ITS | Encounter Summary ---
Author Organization [employer] Address 75 [facility] 7t [place] [address] Care Team Providers Care Explosive Operator Name Role Phone Makayla Angelita [facility] Primary Care Provider [phone] Encounter Details Date Type Department Care Team (Late st Contact Info) Description 10/17/2022 Orders Only [facility] CHC MED & PEDS [address] [place] [address] Sindhu Abel LPN Social History Tobacco Use [...] Description 03/26/2025 1:00 PM EDT Office Visit [facility] MEDICINE [address] [place] [address] Angelita Benavides FNP [address] [place] [address] documented as of this encounter Visit Diagnoses Not on filedocumented in this encounter Care Teams Explosive Operator Relationship Specialty Start Date End Date Angelita Benavides FNP [address] [place] [address] PCP - General Family Medicine 05/16/21 documented as of this encounter
== END 2024-12-31 16:31 | disposition home or self-care (01) ==
LOC: HO.HCS 15:06
PROVIDERS: PCP Registered Nurse; Visit Provider Internal Medicine
DX: I51.7 Cardiomegaly (principal); I10 Essential (primary) hypertension; F17.200 Nicotine dependence, unspecified, uncomplicated
CPT/HCPCS: 93010; 99214

== ENCOUNTER → 2024-12-31 15:05 | Outpatient (BNVA) | payer OTHER, SELFPAY | PROVIDERS: PCP Registered Nurse; Visit Provider Internal Medicine | DX: I51.7 Cardiomegaly (principal) | CPT/HCPCS: 93005 ==

== ENCOUNTER 2025-01-01 | Outpatient (REF) | payer OTHER, SELFPAY | END 2025-01-01 00:01 | disposition home or self-care (01) | LOC: CF | PROVIDERS: PCP Registered Nurse; Visit Provider Physician Assistant Medical | DX: F17.210 Nicotine dependence, cigarettes, uncomplicated (principal) | CPT/HCPCS: G0296 ==

== ENCOUNTER 2025-01-01 11:13 | Outpatient (AMB) | payer OTHER, SELFPAY ==
--- NOTE | 2025-01-01 07:58 | A.OFFVIS_ITS ---
Intake Visit Reasons: Current Smoker Allergies No Known Allergies Allergy (Verified 07/02/22 15:46) HPI HPI Current Smoker: Details: Initial telehealth visit for this 64yo smoker with a 22PYH. Patient started smoking at age 20 for 44 years at 1/2ppd. . Denies marijuana use. Denies second hand smoke exposure. Denies exposure to chemicals or substances like asbestos. . Denies known family history of lung cancer. Denies personal history of cancers. Denies chest CT in last year. . Denies recent travel outside the [place]. Denies recent respiratory illness or recent hospitalization for respiratory issues. Denies testing positive for COVID. Admits receiving COVID Vaccine. . Denies fever, chills, new/worsening cough, hemoptysis, hoarseness or dysphagia. Denies significant chest pain, significant dyspnea or unintentional weight loss. Patient Lung Cancer Screening Questionnaire reviewed with patient by provider. . Shared Decision Making Completed. Patient meets criteria. Discussed in detail with patient, the risk vs benefit of LDCT screening. Patient consents to proceed with scan. Discussed smoking cessation. [facility] History (Updated 01/01/25 @ 10:33 by Moraima Browning PA-C) Essential hypertension LVH (left ventricular hypertrophy) CKD (chronic kidney disease) BPH w urinary obs/LUTS Nicotine dependence, cigarettes, uncomplicated Obesity Surgical History (Updated 01/01/25 @ 10:31 by Moraima Browning PA-C) History of cataract surgery Family History (Reviewed 12/31/24 @ 15:39 by Gabriella Monroe, [facility]) Mother Hypertension Father Diabetes Social History (Updated 01/01/25 @ 10:34 by Moraima Browning PA-C) Alcohol intake: current Alcohol intake frequency: a few times a month Alcohol type: beer Patient Tobacco Use Status: Current everyday Tobacco user Tobacco use type: Cigarette Cigarettes Per Day: 9 Years Smoked: (onset 20yo, 1/2ppd x 44yrs, 22pyh) Telehealth Telehealth Telehealth Platform: Telephone Location of provider rendering services: practice address Location of patient: address on file Patient Identification confirmed using: Name, : Yes Telehealth method: voice only Patient verbally consented to treatment: Yes Patient verbally consented to billing insurance company: Yes Patient informed of any privacy concerns related to visit: Yes Minutes spent on Phone/Video with Pt.: 15 Assessment & Plan Assessment & Plan (1) Nicotine dependence, cigarettes, uncomplicated: Comment: (onset 20yo, 1/2ppd x 44yrs, 22pyh) Code(s): F17.210 - Nicotine dependence, cigarettes, uncomplicated Category: Medical Plan: - telehealth SDM visit completed today via phone. - Patient meets criteria for LDCT for lung cancer screening purposes and is asymptomatic. - Smoking cessation counseling offered. Patients can always call [phone]. - Will arrange for a LDCT scan of the chest for screening purposes at [facility]. - Risks, benefits, and alternatives were discussed in detail and the patient agrees to proceed. - Risks discussed include but are not limited to: radiation exposure, anxiety during testing and while awaiting results, false negatives, false positives and possibility of additional intervention such as further imaging or surgical procedures for benign disease. - Benefits are obviously detection of lung cancer at an early stage which can lead to improved outcomes. - Discussed the importance of screening program compliance with adherence to yearly LDCT scan as scheduled - or sooner interval scans for personalized screening regimen. - Discussed follow up plan. Our office will send a letter discussing results and if needed set up phone call and office visit based on CT findings. - Patient educated on results categorization and the management decisions for suspicious findings potentially found on the screening LDCT scan. Any patient with a Lung RADS score of 3 or 4 will be reviewed by a multidisciplinary team at [facility] to form a plan of action in regards to scan findings. - If further work up is warranted for a suspicious lung finding this will be followed by the Lung Cancer Screening program in conjunction with the Thoracic Surgery Department at [facility]. - A copy of the office note and LDCT will be sent to the patient's PCP - as well as documentation on any associated further plans of care. - Incidental findings on LDCT are the PCP's responsibility. These findings are indicated with an S finding on the LDCT Assessment. A note discussing the findings will be sent to the PCP who is then responsible for further management. - All questions answered.? Coding Level of Care Code Lung Cancer Screening G0296 Diagnoses Nicotine dependence, cigarettes, uncomplicated F17.210
--- OUTSIDE RECORDS SUMMARY | 2025-01-01 11:38 | XMS_ITS | Encounter Summary ---
Author Organization [employer] Address [address] [facility] [address]t [place] [address] Care Team Providers Care Airplane Rental Clerk Name Role Phone Makayla Angelita [facility] Primary Care Provider [phone] Encounter Details Date Type Department Care Team (Late st Contact Info) Description 06/24/2023 Orders Only [facility] CHC MED & PEDS [address] [place] [address] Archana Mercado LPN Social History Tobacco Use [...] Description 03/26/2025 1:00 PM EDT Office Visit [facility] MEDICINE [address] [place] [address] Angelita Benavides FNP [address] [place] [address] documented as of this encounter Visit Diagnoses Not on filedocumented in this encounter Care Teams Airplane Rental Clerk Relationship Specialty Start Date End Date Angelita Benavides FNP [address] [place] [address] PCP - General Family Medicine 05/16/21 documented as of this encounter
--- OUTSIDE RECORDS SUMMARY | 2025-01-01 11:38 | XMS_ITS | Encounter Summary ---
Author Organization [employer] Address [address] [facility] [address]t [place] [address] Care Team Providers Care Geek Squad Agent Name Role Phone Angelita Benavides TERMINAL MAKEUP OPERATOR Primary Care Provider [phone] Encounter Details Date Type Department Care Team (Late st Contact Info) Description 11/28/2022 Orders Only [facility] CHC MED & PEDS [address] [place], [place] [phone] Sindhu Abel LPN Social History Tobacco Use [...] Description 03/26/2025 1:00 PM EDT Office Visit [facility] MEDICINE [address] [place] [address] Angelita Benavides FNP [address] [place] [address] documented as of this encounter Visit Diagnoses Not on filedocumented in this encounter Care Teams Geek Squad Agent Relationship Specialty Start Date End Date Angelita Benavides FNP [address] [place] [address] PCP - General Family Medicine 05/16/21 documented as of this encounter
--- OUTSIDE RECORDS SUMMARY | 2025-01-01 11:38 | XMS_ITS | Clinical Summary ---
Author Organization [employer] Address 75 [facility] [address]t [place] [address] Care Team Providers Care Plywood Layup Line Core Feeder Name Role Phone Angelita Benavides [facility] Primary Care Provider [phone] Allergies Active Allergy Reactions Criticality Noted Date [...] Type Department Care Team Description 12/24/2024 Telephone [facility] [address] [place] [address] Angelita Benavides FNP recalls 10/29/2024 Telephone [facility] [address] [place] [address] Angelita Benavides FNP Lung screening 10/15/2024 Telephone [facility] [address] [place] [address] Angelita Benaivdes FNP Results 10/08/2024 1:30 PM EST Clinical Support [facility] [address] [place] [address] Maricruz Grimaldo, LJ Benign essential hypertension [I10] 10/08/2024 Refill [facility] [address] [place] [address] Angelita Benavides FNP Essential hypertension 10/08/2024 Travel 10/08/2024 Refill [facility] CH[facility] MED & PEDS [address] [place] [address] Angelita Benavides FNP Erectile dysfunction, unspecified erectile dysfunction type 10/06/2024 Telephone [facility] [address] [place] [address] Angelita Benavides FNP Lab Results from Last [...] Description 03/26/2025 1:00 PM EDT Office Visit [facility] MEDICINE [address] [place] [address] [facility] [address] [place] [address] Health Maintenance Due Date Last Done Comments [...] 8:43 AM EST) Triglycerides 111 <150 mg/dL [facility] Comment:Desirable Triglyceri de: less than 150 mg/dLBorderline High Triglyceride 150-199 mg/dLHigh Triglyceride: 200-499 mg/dLVery High Triglyceride: greater than or equal to 5OO mg/dL Cholesterol 205(H) <200 mg/dL [facility] Comment:Desirable Cholestero l: less than 200 mg/dLBorderline High Cholesterol: 200-239 mg/dLHigh Cholesterol: greater than 239 mg/dL LDL Cholesterol Calculated 125(H) <100 mg/dL [facility] Comment:Desirable LDL: less than 100 mg/dLNear Optimal/Above Optimal LDL: 110- 129 mg/dLBorderline High LDL: 130-159 mg/dLHigh LDL: 160-189 mg/dLVery High LDL: greater than or equal to 190 mg/dL HDL Cholesterol 58 >40 mg/dL [facility] Comment:Desirable HDL: great er than 40 mg/dL Note: This HDL assay may give artificially low results in patients with liver disease. Blood Venous blood specimen / Unknown 09/25/2024 8:43 AM EST 09/25/2024 11:30 AM EST [facility] RADIO DESPATCHER LAB BLOOD ORDERABLES Final Re sult [facility] [address] [place] [address] [phone] * HEPATITIS C AB W/REFL TO HCV RNA, QN, PCR (05/25/2020 11:14 AM EDT) HEPATITIS C ANTIBODY NON-REACT DINO NON-REACT DINO [facility] INDEX 0.03 <1.00 [facility] Comment: ?? HCV antibody was non-reactive. There is no laboratory ?? evidence of HCV infection. ?? In most cases, no further action is required. However, if recent HCV exposure is suspected, a test for HCV RNA (test code 82954) is suggested. ?? For additional information please refer to http://[employer]/faq/PQE42y8 (This link is being provided for informational/ educational purposes only.) ?? HEPATITIS C ANTIBODY NON-REACT DINO NON-REACT DINO [facility] INDEX 0.03 <1.00 [facility] Comment: ?? HCV antibody was non-reactive. There is no laboratory ?? evidence of HCV infection. ?? In most cases, no further action is required. However, if recent HCV exposure is suspected, a test for HCV RNA (test code 63083) is suggested. ?? For additional information please refer to http://[employer]/faq/DNF22y0 (This link is being provided for informational/ educational purposes only.) ?? HEPATITIS C ANTIBODY NON-REACT DINO NON-REACT DINO [facility] INDEX 0.03 <1.00 [facility] Comment: ?? HCV antibody was non-reactive. There is no laboratory ?? evidence of HCV infection. ?? In most cases, no further action is required. However, if recent HCV exposure is suspected, a test for HCV RNA (test code 98962) is suggested. ?? For additional information please refer to http://[employer]/faq/FDA06l2 (This link is being provided for informational/ educational purposes only.) ?? HEPATITIS C ANTIBODY NON-REACT DINO NON-REACT DINO [facility] INDEX 0.03 <1.00 [facility] Comment: ?? HCV antibody was non-reactive. There is no laboratory ?? evidence of HCV infection. ?? In most cases, no further action is required. However, if recent HCV exposure is suspected, a test for HCV RNA (test code 56513) is suggested. ?? For additional information please refer to http://[employer]/faq/UZU67e9 (This link is being provided for informational/ educational purposes only.) ?? 05/25/2020 11:1 4 AM EDT us Historical Provider HISTORICAL/NON ORDERABLE LABS Final Result Performing Organization Address City/State/[facility] Co de Phone Number [facility] [address] from Last 3 Months or Most Recently Relevant to Health Maintenance Insurance [facility] [address] [place] [address] Care Teams Plywood Layup Line Core Feeder Relationship Specialty Start Date End Date [place]ita britt, RADIO DESPATCHER [address] [place] [address] PCP - General Family Medicine 05/16/21
--- OUTSIDE RECORDS SUMMARY | 2025-01-01 11:38 | XMS_ITS | Encounter Summary ---
Author Organization [employer] Address [address] [facility] 7t [place] [address] Care Team Providers Care Education Rep Name Role Phone Makayla Angelita [facility] Primary Care Provider [phone] Encounter Details Date Type Department Care Team (Late st Contact Info) Description 10/17/2022 Orders Only [facility] MED & PEDS [address] [place] [address] Sindhu Abel LPN Social History Tobacco Use [...] Description 03/26/2025 1:00 PM EDT Office Visit [facility] MEDICINE [address] [place] [address] Angelita Benavides FNP [address] [place] [address] documented as of this encounter Visit Diagnoses Not on filedocumented in this encounter Care Teams Education Rep Relationship Specialty Start Date End Date Angelita Benavides FNP [address] [place] [address] PCP - General Family Medicine 05/16/21 documented as of this encounter
--- OUTSIDE RECORDS SUMMARY | 2025-01-01 11:38 | XMS_ITS | Encounter Summary ---
Author Organization [employer] Address [address] [facility] [address]t [place] [address] Care Team Providers Care Toll Line Repairer Name Role Phone Makayla Angelita [facility] Primary Care Provider [phone] Encounter Details Date Type Department Care Team (Late st Contact Info) Description 05/09/2023 Orders Only [facility] CH[facility] MED & PEDS [address] [place] [address] Archana Mercado LPN Social History Tobacco Use [...] Description 03/26/2025 1:00 PM EDT Office Visit [facility] MEDICINE [address] [place] [address] Angelita Benavides FNP [address] [place] [address] documented as of this encounter Visit Diagnoses Not on filedocumented in this encounter Care Teams Toll Line Repairer Relationship Specialty Start Date End Date Angelita Benavides FNP [address] [place] [address] PCP - General Family Medicine 05/16/21 documented as of this encounter
== END 2025-01-01 11:13 | disposition home or self-care (01) ==
LOC: HO.HPS 11:13
PROVIDERS: PCP Registered Nurse; Referring Provider Registered Nurse; Visit Provider Physician Assistant Medical
DX: F17.210 Nicotine dependence, cigarettes, uncomplicated (principal)
CPT/HCPCS: G0296

== ENCOUNTER 2025-01-29 15:10 | Outpatient (REF) | payer OTHER, SELFPAY ==
--- NOTE | ~2025-01-29 | CT_ITS ---
CLINICAL HISTORY: F17.210 - Nicotine dependence, cigarettes, uncomplicated CT lung cancer screening (LDCT) Comparison: None Technique: Axial CT images of the chest using low-dose technique. Referring provider counseled the patient on shared decision-making for LDCT screening. Additional counseling was provided on smoking cessation. Effective radiation dose total: DLP 70.9 mGycm, CTDIvol 1.8 mGy. Findings: There is a 5 mm pleural-based nodule in the right upper lobe best seen on image number 47 of series number 5. A 3 mm nodule is seen in the right upper lobe on image number 71 of series number 5. There are no coronary artery calcifications. Limited upper abdomen: Unremarkable Other: None Impression: LungRADS 3 - Probably benign: Recommend low dose screening Chest CT in 6 months. ##L3# Category 1: Normal; continue annual screening Category 2: Benign appearance or behavior, continue annual screening Category 3: Probably benign, [address] recommended Category 4A: Suspicious, [address] recommended; may consider PET/CT Category 4B: Suspicious, Additional diagnostics and/or tissue sampling recommended Category 4X: Suspicious, Additional diagnostics and/or tissue sampling recommended Category 0: Recalls (incomplete screen due to Incomplete coverage, Noise, Respiratory motion, Expiration, Obscured by acute abnormality) This document has been electronically signed by: Emmanuel Keating MD on 02/02/2025 06:59:09
== END 2025-01-29 15:11 | disposition home or self-care (01) ==
LOC: HO.CT 15:10
PROVIDERS: PCP Registered Nurse; Visit Provider Physician Assistant Medical
DX: Z12.2 Encounter for screening for malignant neoplasm of respiratory organs (principal); F17.210 Nicotine dependence, cigarettes, uncomplicated
CPT/HCPCS: 71271

== ENCOUNTER → 2025-01-29 15:11 | Outpatient (BNV) | payer OTHER, SELFPAY | PROVIDERS: PCP Registered Nurse; Visit Provider Radiology Diagnostic Radiology | DX: F17.210 Nicotine dependence, cigarettes, uncomplicated (principal) | CPT/HCPCS: 71271 ==